=== PATIENT | male | born 1950 | race Caucasian/White ===

== ENCOUNTER → 2016-07-31 | Outpatient (CLI) | payer MEDICARE ==
[2016-07-31 07:58] LABS: Blood Urea Nitrogen 11 mg/dL (9-20); Non-African American GFR(MDRD) >60 (>60 ml/min/1.73 sqM)
--- NOTE | 2016-07-31 09:03 | CT ---
EXAMINATION TYPE: CT soft tissue neck w con DATE OF EXAM: 07/31/2016 8:50 AM COMPARISON: NONE HISTORY: 66-year-old male with right neck Mass TECHNIQUE: Contiguous axial scanning of the neck performed with IV Contrast, patient injected with 10 0 mL of Omnipaque 300. Coronal/sagittal reconstructions performed. CT DLP: 273.1 mGycm Automated exposure control for dose reduction was used. FINDINGS: The visualized intracranial structures show no gross abnormality. Mastoid air cells are clear. Moderate mucosal thickening within the right greater than left maxillary sinuses. Nasopharynx is clear. There is bilateral palatine tonsillar enlargement with calcifications suggesting sequela of prior inf ection. Small 4 mm cystic lesion in the left palatine tonsil is nonspecific. The epiglottis and preve rtebral soft tissues are within normal limits. There is mild abnormal mucosal thickening and enhancement in the region of the right piriform sinus s panning approximately 2.9 cm craniocaudal. Refer to axial images 38 through 44. The glottic and subglottic airway and tracheal column appear within normal limits. There is biapical pleural parenchymal scarring with moderate upper lung emphysema. The thyroid and submandibular glands as well as the parotid glands are satisfactory. There is an abnormal partially cystic, likely necrotic right station 2/3 lymph node measuring 2.0 cm short axis along the anterior margin of the sternocleidomastoid abutting the carotid space. A couple additional prominent lymph nodes are noted on both sides of the upper neck measuring up to 1.2 cm and are not enlarged by CT size criteria. No osseous destructive process seen. Old healed right clavicular shaft fracture deformity. 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
== END | disposition home or self-care (01) ==
LOC: RADCTMAIN 07:18
PROVIDERS: ATTEND Otolaryngology
DX: R22.1 Localized swelling, mass and lump, neck (principal)
CPT/HCPCS: 82565; 84520; 70491; 36415; Q9967

== ENCOUNTER 2017-06-06 12:31 | Inpatient (IN) | payer MEDICARE ==
[2017-06-06] MEDS ORDERED: SODIUM CHLORIDE 0.9% 1,000 ML IV STA ×2 (13:49)
[2017-06-06] MEDS ORDERED: PANTOPRAZOLE 40 MG/10 ML VIAL IVP STA (13:49)
[2017-06-06 14:09] LABS: Basophils % (A) 0 %; Eosinophils # (A) 0.1 k/uL (0-0.7); Eosinophils % (A) 1 %; HCT 40.4 % (39.0-53.0); HGB 13.8 gm/dL (13.0-17.5); Lymphocytes # (A) 0.4 k/uL (1.0-4.8); Lymphocytes % (A) 6 %; MCH 32.6 pg (25.0-35.0); MCHC 34.1 g/dL (31.0-37.0); MCV 95.3 fL (80.0-100.0); Mean Platelet Volume 7.3; Monocytes # (A) 0.4 k/uL (0-1.0); Monocytes % (A) 5 %; Neutrophils # (A) 5.7 k/uL (1.3-7.7); Neutrophils % (A) 86 %; Platelet Count 162 k/uL (150-450); RBC 4.24 m/uL (4.30-5.90); RDW 13.6 % (11.5-15.5); WBC 6.6 k/uL (3.8-10.6)
[2017-06-06 14:30] LABS: ALT 462 U/L (21-72); AST 262 U/L (17-59); Albumin 3.9 g/dL (3.5-5.0); Alkaline Phosphatase 227 U/L (38-126); Amylase 45 U/L (30-110); Anion Gap 10 mmol/L; Blood Urea Nitrogen 13 mg/dL (9-20); Calcium 9.6 mg/dL (8.4-10.2); Carbon Dioxide 29 mmol/L (22-30); Chloride 100 mmol/L (98-107); Glucose 93 mg/dL (74-99); Lipase 78 U/L (23-300); Sodium 139 mmol/L (137-145); Total Bilirubin 5.4 mg/dL (0.2-1.3); Total Protein 6.5 g/dL (6.3-8.2)
--- NOTE | 2017-06-06 15:01 | US ---
EXAMINATION TYPE: US abdomen limited DATE OF EXAM: 06/06/2017 COMPARISON: NONE CLINICAL HISTORY: Pain. 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 Visualized portions near the proximal body are unremar kable. Visualized liver shows no worrisome mass or ductal dilatation. There is stone filled gallbladd er. Gallbladder wall is mildly thickened up to 4 mm. No definitive sonographic Nick's sign. No rachel cholecystic fluid. Common bile duct is moderately dilated at 13 mm. No obstructing stone is identifie d. It is dilated up to pancreatic head without definitive obstructing mass. IMPRESSION: Gallstones with mild gallbladder wall thickening. No pericholecystic fluid collection or abnormal gallbladder wall thickening. Acute cholecystitis cannot be excluded in patient with pain. Co nsider HIDA scan evaluation. There is moderate extrahepatic biliary dilatation without intrahepatic b iliary dilatation. Reason for finding not identified. Consider CT correlation.
[2017-06-06] MEDS ORDERED: RX INFO: IV CONTRAST WAS GIVEN 1 EACH MISC MISCELLANE PRN (15:24)
--- NOTE | 2017-06-06 15:28 | ED ---
Abdominal Pain HPI - General Chief Complaint: Abdominal Pain Stated Complaint: Abd Pain-Sent by Time Seen by Provider: 06/06/17 13:42 Source: patient Mode of arrival: ambulatory Limitations: no limitations - History of Present Illness Initial Comments: This 67-year-old white male presents with a complaint of some midepigastric and bilateral upper abdominal pain which is been present for the last 2 days. He states that it initially occurred 2 days ago after sipping some coffee. He states that the pain was excruciating in nature and radiated posteriorly. He denies any nausea vomiting or diarrhea. He's felt feverish at times but has not had any known temperature. He states that he has not 8 much because every time he tries to eat it is much worse. He denies any previous similar incidents. He denies any history of abdominal surgeries. No other complaints or modifying factors. - Related Data Home Medications Medication Instructions Recorded Confirmed Albuterol Inhaler [Ventolin Hfa 1 puff INHALATION RT-BID 07/30/16 06/06/17 Inhaler] Ipratropium [place] [Atrovent Hfa] 1 puff INHALATION RT-BID 07/30/16 06/06/17 Allergies Allergy/AdvReac Type Severity Reaction Status Date / Time No Known Allergies Allergy Verified 06/06/17 13:39 Review of Systems ROS Statement: Those systems with pertinent positive or pertinent negative responses have been documented in the HPI. ROS Other: All systems not noted in ROS Statement are negative. Past Medical History Past Medical History: COPD Additional Past Medical History / Comment(s): chronic sinus infecton, ear infection on right side, lump on neck on right side. History of Any Multi-Drug Resistant Organisms: None Reported Past Surgical History: No Surgical Hx Reported Additional Past Surgical History / Comment(s): sinus surgery, repair of leg fracture Past Anesthesia/Blood Transfusion Reactions: No Reported Reaction Past Psychological History: No Psychological Hx Reported Smoking Status: Current every day smoker Past Alcohol Use History: Daily, Rare Past Drug Use History: Marijuana - Past Family History Mother Family Medical History: Myocardial Infarction ([place]) General Exam - General Exam Comments Initial Comments: GENERAL: The patient is well nourished and well hydrated. VITAL SIGNS: Heart rate, blood pressure, respiratory rate reviewed as recorded in nurse's notes. EYES: Pupils are round and reactive. Extraocular movements are intact. No conjunctival / lid redness or swelling. ENT: No external evidence of injury, swelling, or ecchymosis. Airway is patent. Throat is clear. NECK: Nontender. No swelling or evidence of injury. No subcutaneous emphysema. Trachea is midline. No thyroid mass. HEART: Regular rate and rhythm. Good peripheral pulses. LUNGS/CHEST: Breath sounds clear and equal bilaterally. No rales, rhonchi, or wheezes. No ecchymosis, subcutaneous emphysema, or tenderness. ABDOMEN: There is tenderness present primarily in the midepigastric region but also into the bilateral upper abdomen. No palpable masses or organomegaly. No peritoneal signs. No abdominal wall swelling or ecchymosis. EXTREMITIES: No extremity tenderness. Normal muscle tone and function. No thoracolumbar tenderness. NEUROLOGIC: Sensation is grossly intact. Cranial nerve exam reveals face is symmetrical, tongue is midline, speech is clear. SKIN: No abrasions or ecchymosis is noted. No induration or masses noted. PSYCHIATRIC: Alert and oriented. Appropriate behavior and judgment. Limitations: no limitations Course Vital Signs 06/06/17 12:41 Temperature 98.1 F Pulse Rate 78 Respiratory 18 Rate Blood Pressure 114/71 O2 Sat by Pulse 98 Oximetry Medical Decision Making - Medical Decision Making The patient was seen and examined. All diagnostics were reviewed. An IV is established. He states that he is not in any pain currently so pain medications are withheld. He had a laboratory analysis completed which is show elevation of his bilirubin and transaminases. The abdominal ultrasound does show evidence of gallstones as well as some mild gallbladder wall thickening. They suggest completing a computed tomography scan of the abdomen and pelvis and this is also ordered and is pending. It is felt that he does have acute cholecystitis and would benefit from admission to the hospital and further surgical consultation. Case is discussed with internal medicine and they're agreeable as well. - Lab Data Result diagrams: 06/06/17 13:51 06/06/17 13:51 Lab Results 06/06/17 06/06/17 Range/Units 13:51 13:51 WBC 6.6 (3.8-10.6) k/uL RBC 4.24 L (4.30-5.90) m/uL Hgb 13.8 (13.0-17.5) gm/dL Hct 40.4 (39.0-53.0) % MCV 95.3 (80.0-100.0) fL MCH 32.6 (25.0-35.0) pg MCHC 34.1 (31.0-37.0) g/dL RDW 13.6 (11.5-15.5) % Plt Count 162 (150-450) k/uL Neutrophils % 86 % Lymphocytes % 6 % Monocytes % 5 % Eosinophils % 1 % Basophils % 0 % Neutrophils # 5.7 (1.3-7.7) k/uL Lymphocytes # 0.4 L (1.0-4.8) k/uL Monocytes # 0.4 (0-1.0) k/uL Eosinophils # 0.1 (0-0.7) k/uL Basophils # 0.0 (0-0.2) k/uL Sodium 139 (137-145) mmol/L Potassium 4.0 (3.5-5.1) mmol/L Chloride 100 (98-107) mmol/L Carbon Dioxide 29 (22-30) mmol/L Anion Gap 10 mmol/L BUN 13 (9-20) mg/dL Creatinine 0.80 (0.66-1.25) mg/dL Est GFR (CKD-EPI)AfAm >90 (>60 ml/min/1.73 sqM) Est GFR (CKD-EPI)NonAf >90 (>60 ml/min/1.73 sqM) Glucose 93 (74-99) mg/dL Calcium 9.6 (8.4-10.2) mg/dL Total Bilirubin 5.4 H (0.2-1.3) mg/dL AST 262 H (17-59) U/L ALT 462 H (21-72) U/L Alkaline Phosphatase 227 H (38-126) U/L Total Protein 6.5 (6.3-8.2) g/dL Albumin 3.9 (3.5-5.0) g/dL Amylase 45 (30-110) U/L Lipase 78 (23-300) U/L Disposition Clinical Impression: Cholecystitis, Gallstone, Abdominal pain, Hepatic failure, Jaundice Disposition: ADMITTED IP TO THIS [facility] Condition: Fair Time of Disposition: 16:01 Decision Date: 06/06/17 Decision Time: 16:01
[2017-06-06] MEDS ORDERED: NICOTINE 21MG/24HR PATCH TRANSDERM STA (16:01)
[2017-06-06] MEDS ORDERED: HYDROcodone/APAP 5-325MG 1 EACH TAB PO PRN (16:02)
[2017-06-06] MEDS ORDERED: ONDANSETRON 4 MG/2 ML VIAL IVP PRN (16:02)
[2017-06-06] MEDS ORDERED: NALOXONE 0.4 MG/ML 1 ML VIAL IV PRN (16:02)
[2017-06-06] MEDS ORDERED: MORPHINE SULFATE/PF 10MG/10ML VL IV PRN (16:02)
[2017-06-06] MEDS ORDERED: DOCUSATE 100 MG CAP PO PRN (16:02)
--- NOTE | 2017-06-06 16:10 | CT ---
EXAMINATION TYPE: CT abdomen pelvis w con DATE OF EXAM: 06/06/2017 COMPARISON: Correlation ultrasound today HISTORY: 67-year-old male epigastric and abdominal pain. TECHNIQUE: Contiguous axial scanning of the abdomen and pelvis following administration of 100 ml Omn ipaque 300 IV contrast. Delayed images through the kidneys and coronal/sagittal reconstructions perf ormed. CT DLP: 699 mGycm Automated exposure control for dose reduction was used. FINDINGS: Heart is normal size without pericardial effusion. Ectasia of the lower descending thoracic aorta at 2.5 cm. Strandy atelectasis at the visualized lung bases without pleural effusion. Moderate to severe atherosclerotic changes in the abdominal aorta without aneurysm. No focal liver lesion. However, there is moderate intrahepatic ductal dilatation and dilatation of th e bile measuring up to 1.5 cm, coronal image 19. There is cholelithiasis with numerous gallstones. There appears to be a 1.2 cm calculus at the gallbl adder neck and probable additional calculus in the cystic duct, coronal image 23. Additionally, suspect a 4 mm distal bile duct calculus, coronal image 23 as well. Portal venous system is patent. Adrenal glands, kidneys, spleen, and pancreas appear within normal limits. No dilated small bowel, free fluid, or free air. Prominent fluid filled small bowel loops in the mid and lower abdomen and pelvis are nonspecific. Normal appendix. Scattered moderate stool throughout the colon. No pericolonic inflammatory change. Bladder is urine distended. Prostate gland measures 4.4 cm wide. No abnormal fluid collection in the pelvis or pelvic lymphadenopathy. Bones: Mild degenerative changes at the hips and SI joints. There are bilateral L5 pars defects with grade 1 anterolisthesis at L5-S1. Trace grade 1 retrolisthesis at L3-L4 and L4-L5. No osseous destruc tive process. IMPRESSION: 1. CHOLELITHIASIS. THERE IS A 1.2 CM CALCULUS AT THE GALLBLADDER NECK AND ADDITIONAL CALCULUS APPEARS TO BE IN THE CYSTIC DUCT. CONSIDER MONITORING THE PATIENT FOR EVENTUAL ACUTE CHOLECYSTITIS. NO ABNOR MAL GALLBLADDER DISTENTION OR SURROUNDING INFLAMMATION AT THIS TIME. 2. MODERATE BILIARY DUCTAL DILATATION WITH SUGGESTION OF A 4 MM DISTAL BILE DUCT STONE. FINDINGS SUGG EST CHOLEDOCHOLITHIASIS. CONFIRM BILIARY OBSTRUCTION WITH ALKALINE PHOSPHATASE AND BILIRUBIN LEVELS. 3. BILATERAL L5 PARS DEFECTS WITH GRADE 1 ANTEROLISTHESIS.
[2017-06-06] MEDS ORDERED: IPRATROPIUM-ALBUTEROL 3 ML NEB INHALATION SCH (20:00)
[2017-06-06] MEDS ORDERED: IPRATROPIUM BROMIDE INHALATION SCH (20:00)
[2017-06-06] MEDS ORDERED: TEMAZEPAM 15 MG CAP PO PRN (20:14)
[2017-06-06] MEDS ORDERED: ALPRAZolam 0.25 MG TAB PO PRN (20:14)
[2017-06-06] MEDS ORDERED: IPRATROPIUM-ALBUTEROL 3 ML NEB INHALATION PRN (20:14)
--- NOTE | 2017-06-06 20:32 | P.GSCN ---
History of Present Illness Consult date: 06/06/17 History of present illness: This is a 67-year-old male who began experiencing abdominal pain in his right upper quadrant midepigastric area 4 days ago. He states this progressively been getting worse. He is noted dark urine in the last several days. He had pain like this several years ago however better on its own. He has no past abdominal surgical history. He's been afebrile he denies nausea vomiting. He has no other complaints at this time Past Medical History Past Medical History: Cancer, COPD Additional Past Medical History / Comment(s): chronic sinus infecton, ear infection on right side, lump ([place]) on neck on right side. Tongue CA- radiation and chemo completed 10/25 History of Any Multi-Drug Resistant Organisms: None Reported Past Surgical History: No Surgical Hx Reported Additional Past Surgical History / Comment(s): sinus surgery, repair of leg fracture Past Anesthesia/Blood Transfusion Reactions: No Reported Reaction Past Psychological History: No Psychological Hx Reported Smoking Status: Current every day smoker Past Alcohol Use History: None Reported Past Drug Use History: None Reported - Past Family History Mother Family Medical History: Myocardial Infarction ([place]) Medications and Allergies Home Medications Medication Instructions Recorded Confirmed Type Albuterol Inhaler [Ventolin Hfa 1 puff INHALATION RT-BID 07/30/16 06/06/17 History Inhaler] Ipratropium [place] [Atrovent Hfa] 1 puff INHALATION RT-BID 07/30/16 06/06/17 History Allergies Allergy/AdvReac Type Severity Reaction Status Date / Time No Known Allergies Allergy Verified 06/06/17 13:39 Surgical - Exam Osteopathic Statement: *. No significant issues noted on an osteopathic structural exam other than those noted in the History and Physical/Consult. Vital Signs Temp Pulse Resp BP Pulse Ox 98.1 F 78 18 114/71 98 06/06/17 12:41 06/06/17 12:41 06/06/17 12:41 06/06/17 12:41 06/06/17 12:41 - General well developed, well nourished, no distress - Eyes PERRL - ENT normal pinna - Neck no masses - Respiratory normal expansion, normal respiratory effort - Cardiovascular Rhythm: regular - Abdomen S/ND/mild TTP RUQ, No R/R/G - Neurologic normal coordination, normal sensation Results - Labs 06/06/17 13:51 06/06/17 13:51 Abnormal Lab Results - Last 24 Hours (Table) 06/06/17 06/06/17 Range/Units 13:51 13:51 RBC 4.24 L (4.30-5.90) m/uL Lymphocytes # 0.4 L (1.0-4.8) k/uL Total Bilirubin 5.4 H (0.2-1.3) mg/dL AST 262 H (17-59) U/L ALT 462 H (21-72) U/L Alkaline Phosphatase 227 H (38-126) U/L Diabetes panel 06/06/17 Range/Units 13:51 Sodium 139 (137-145) mmol/L Potassium 4.0 (3.5-5.1) mmol/L Chloride 100 (98-107) mmol/L Carbon Dioxide 29 (22-30) mmol/L BUN 13 (9-20) mg/dL Creatinine 0.80 (0.66-1.25) mg/dL Glucose 93 (74-99) mg/dL Calcium 9.6 (8.4-10.2) mg/dL AST 262 H (17-59) U/L ALT 462 H (21-72) U/L Alkaline Phosphatase 227 H (38-126) U/L Total Protein 6.5 (6.3-8.2) g/dL Albumin 3.9 (3.5-5.0) g/dL Calcium panel 06/06/17 Range/Units 13:51 Calcium 9.6 (8.4-10.2) mg/dL Albumin 3.9 (3.5-5.0) g/dL Pituitary panel 06/06/17 Range/Units 13:51 Sodium 139 (137-145) mmol/L Potassium 4.0 (3.5-5.1) mmol/L Chloride 100 (98-107) mmol/L Carbon Dioxide 29 (22-30) mmol/L BUN 13 (9-20) mg/dL Creatinine 0.80 (0.66-1.25) mg/dL Glucose 93 (74-99) mg/dL Calcium 9.6 (8.4-10.2) mg/dL Adrenal panel 06/06/17 Range/Units 13:51 Sodium 139 (137-145) mmol/L Potassium 4.0 (3.5-5.1) mmol/L Chloride 100 (98-107) mmol/L Carbon Dioxide 29 (22-30) mmol/L BUN 13 (9-20) mg/dL Creatinine 0.80 (0.66-1.25) mg/dL Glucose 93 (74-99) mg/dL Calcium 9.6 (8.4-10.2) mg/dL Total Bilirubin 5.4 H (0.2-1.3) mg/dL AST 262 H (17-59) U/L ALT 462 H (21-72) U/L Alkaline Phosphatase 227 H (38-126) U/L Total Protein 6.5 (6.3-8.2) g/dL Albumin 3.9 (3.5-5.0) g/dL - Imaging CT scan - abdomen: report reviewed, image reviewed CT scan - pelvis: report reviewed, image reviewed US - abdomen: report reviewed Assessment and Plan Assessment: Choledocholithiasis Plan: Patient has elevated bili with suspected stone in CBD on CT and dilated CBD on US. Continue NPO, IVF, patient is on unasyn, GI consulted for possible ERCP. Will plan for lap cholecystectomy prior to discharge once obstructive jaundice resolves.
--- NOTE | 2017-06-06 20:36 | HP ---
HISTORY AND PHYSICAL CHIEF COMPLAINT: Abdominal pain. HISTORY OF PRESENT ILLNESS: This 67-year-old gentleman with a past history of COPD, history of chronic sinus infection, history of nicotine dependence being followed by Dr. Cross in the outpatient setting was complaining of abdominal pain. Initially patient apparently had pain after drinking coffee but subsequently, the patient had severe upper abdominal pain which is cramping in character, which is radiating to the back and also to the right shoulder and the patient came to [facility]. Patient underwent abdominal and pelvis CAT scan of the abdomen which showed cholelithiasis and as well as moderate biliary dilatation. The abdominal ultrasound showed gallstones with gallbladder thickening and the patient admitted to the hospital for further evaluation and treatment. There is no history of fever, rigors or chills. No history of headache, loss of consciousness or seizures. PAST MEDICAL HISTORY: COPD, sinus infection, history of nicotine dependence. Marijuana. MEDICATIONS: Prior to admission include albuterol 1 puff b.i.d. and Ventolin b.i.d. ALLERGIES: None. FAMILY HISTORY: History of myocardial infarction in the family. SOCIAL HISTORY: History of smoking. No history of alcohol intake. REVIEW OF SYSTEMS: ENT: No diminished vision or hearing. Cardiovascular: No angina or palpitations. Respiratory: As mentioned earlier. GI no nausea or vomiting. no dysuria or hematuria. Nervous system: No numbness, weakness. Allergy/Immunology: No asthma or hayfever. Musculoskeletal as mentioned earlier. Dermatology: Negative. Hematology/Oncology: No history of anemia. Endocrine: No history of diabetes or hypothyroidism. Constitutional: As mentioned earlier. Rheumatology: Negative. Psychiatric: As mentioned earlier. PHYSICAL EXAM: Patient is alert, oriented x3. Pulse is 71, blood pressure 108/67, respirations 16, temp 98 degrees, pulse ox 98% on room air. HEENT: Conjunctivae normal. Neck: No jugular venous distention. Cardiovascular: S1, S2 muffled. Respiration: Breath sounds diminished in the bases. A few scattered rhonchi and expiratory wheezing and crackles. ABDOMEN: Soft. Mild diffuse discomfort present in the epigastrium and right upper quadrant. No guarding. No rigidity. No mass palpable. Legs nontender. No edema. Nervous system: Higher functions as mentioned earlier. Moves all four extremities. No focal deficits. Lymphatics: No lymph nodes palpable in the neck, axillae or groin. Skin: No ulcer, rash or bleeding. LAB STUDIES: WBC 6.2, hemoglobin 4.24, total bilirubin 5.4, AST is 262, ALT is 462. ASSESSMENT: 1. Acute abdominal pain secondary to cholelithiasis and cholecystitis. 2. Elevated AST, ALT, bilirubin, rule out CBD stones. 3. History of chronic obstructive pulmonary disease. 4. History of nicotine dependence. 5. History of THC. RECOMMENDATIONS AND DISCUSSION: This 67-year-old gentleman who presented with multiple complex medical issues, we will monitor the patient closely, continue the current medications, management and symptomatic treatment. Surgical evaluation. Otherwise repeat labs. DVT prophylaxis. Possible cholecystectomy. Gastroenterology evaluation, possibly ERCP. Guarded prognosis because of multiple complex medical issues. Further recommendations to follow. A copy of dictation being forwarded to Dr. Cross who is the primary physician. MMODL / PORFIRION: [id number] /
[2017-06-06] MEDS: AMPICILLIN-SULBACTAM 1.5 GM in SODIUM CHLORIDE 0.9% 50 ML IVPB SCH (22:17)
[2017-06-06] MEDS: NICOTINE 14MG/24HR PATCH TRANSDERM SCH (22:19)
[2017-06-07] MEDS: AMPICILLIN-SULBACTAM 1.5 GM in SODIUM CHLORIDE 0.9% 50 ML IVPB SCH ×3 (05:23→17:35)
[2017-06-07] MEDS: IPRATROPIUM-ALBUTEROL 3 ML NEB INHALATION SCH ×3 (07:31→20:16)
[2017-06-07 07:48] LABS: Basophils % (A) 1 %; Eosinophils # (A) 0.1 k/uL (0-0.7); Eosinophils % (A) 2 %; HCT 38.1 % (39.0-53.0); Lymphocytes # (A) 0.4 k/uL (1.0-4.8); Lymphocytes % (A) 9 %; MCH 32.8 pg (25.0-35.0); MCHC 34.2 g/dL (31.0-37.0); MCV 95.9 fL (80.0-100.0); Mean Platelet Volume 7.8; Monocytes # (A) 0.3 k/uL (0-1.0); Monocytes % (A) 7 %; Neutrophils # (A) 3.7 k/uL (1.3-7.7); Neutrophils % (A) 81 %; Platelet Count 153 k/uL (150-450); RBC 3.97 m/uL (4.30-5.90); RDW 13.7 % (11.5-15.5); WBC 4.6 k/uL (3.8-10.6)
[2017-06-07 07:56] LABS: ALT 332 U/L (21-72); AST 162 U/L (17-59); Albumin 3.4 g/dL (3.5-5.0); Alkaline Phosphatase 230 U/L (38-126); Anion Gap 14 mmol/L; Blood Urea Nitrogen 15 mg/dL (9-20); Calcium 9.1 mg/dL (8.4-10.2); Carbon Dioxide 22 mmol/L (22-30); Chloride 106 mmol/L (98-107); Glucose 58 mg/dL (74-99); Potassium 4.1 mmol/L (3.5-5.1); Sodium 142 mmol/L (137-145); Total Protein 5.8 g/dL (6.3-8.2)
[2017-06-07] MEDS: NICOTINE 14MG/24HR PATCH TRANSDERM SCH (08:42)
[2017-06-07] MEDS: ENOXAPARIN 40 MG/0.4 ML SYRINGE SQ SCH (08:57)
[2017-06-07] MEDS: PANTOPRAZOLE 40 MG/10 ML VIAL IV SCH (09:00)
--- NOTE | 2017-06-07 11:18 | P.PN ---
Subjective Progress Note Date: 06/07/17 Patient well overnight no complaints. His pain is about the same. No fevers Objective - Vital Signs Vital signs: Vital Signs Temp 98.6 F 06/07/17 08:38 Pulse 71 06/07/17 08:38 Resp 16 06/07/17 08:38 BP 103/57 06/07/17 08:38 Pulse Ox 95 06/07/17 08:38 Intake & Output 06/06/17 06/07/17 06/07/17 18:59 06:59 18:59 Intake Total 1200 Balance 1200 Weight 56.699 kg Intake: Intake, IV Titration 1200 Amount Ampicillin-Sulbactam 1.5 50 gm In Sodium Chloride 0.9 % 50 ml @ 100 mls/hr IVPB Q6HR DANN Rx#:[id number] Sodium Chloride 0.9% 1, 1150 000 ml @ 100 mls/hr IV . Q10H STA Rx#:[id number] Other: Voiding Method Toilet Toilet # Voids 1 1 - Constitutional General appearance: Present: cooperative - Respiratory Details: Nonlabored - Cardiovascular Rhythm: regular - Gastrointestinal Gastrointestinal Comment(s): Soft nondistended mild tenderness palpation - Psychiatric Psychiatric: Present: A&O x's 3 - Labs CBC & Chem 7: 06/07/17 06:10 06/07/17 06:10 Labs: Abnormal Lab Results - Last 24 Hours (Table) 06/06/17 06/06/17 06/07/17 Range/Units 13:51 13:51 06:10 RBC 4.24 L 3.97 L (4.30-5.90) m/uL Hct 38.1 L (39.0-53.0) % Lymphocytes # 0.4 L 0.4 L (1.0-4.8) k/uL Glucose (74-99) mg/dL Total Bilirubin 5.4 H (0.2-1.3) mg/dL AST 262 H (17-59) U/L ALT 462 H (21-72) U/L Alkaline Phosphatase 227 H (38-126) U/L Total Protein (6.3-8.2) g/dL Albumin (3.5-5.0) g/dL 06/07/17 Range/Units 06:10 RBC (4.30-5.90) m/uL Hct (39.0-53.0) % Lymphocytes # (1.0-4.8) k/uL Glucose 58 L (74-99) mg/dL Total Bilirubin 7.0 H (0.2-1.3) mg/dL AST 162 H (17-59) U/L ALT 332 H (21-72) U/L Alkaline Phosphatase 230 H (38-126) U/L Total Protein 5.8 L (6.3-8.2) g/dL Albumin 3.4 L (3.5-5.0) g/dL Assessment and Plan Assessment: Choledocholithiasis Plan: Continue nothing by mouth follow GI recommendations for possible ERCP. Plan will be for cholecystectomy once patient is cleared from GI standpoint.
[2017-06-07] MEDS ORDERED: INDOMETHACIN 50MG SUPPOSITORY RECTAL ONE (12:30)
[2017-06-07] MEDS ORDERED: PROPOFOL 10 MG/ML 20 ML VIAL IV ONE (13:54)
[2017-06-07] MEDS ORDERED: GLUCAGON 1 MG/ML VIAL ONE (13:54)
--- NOTE | 2017-06-07 14:34 | CONS ---
CONSULTATION DATE OF SERVICE: 06/07/2017 REQUESTING PHYSICIAN: Dr. Kwon and Dr. Cross. REASON FOR THE CONSULTATION: Abdominal pain and jaundice. HISTORY OF PRESENT ILLNESS: The patient is a 67-year-old pleasant white male who was admitted to the hospital with severe epigastric right upper quadrant abdominal pain for the last 4 days' duration. The patient initially had seen symptoms about 2 weeks ago that lasted for a couple of days and resolved. On Saturday, he started having severe pain and he noticed his urine turning yellow. He came into the emergency room yesterday and he had an ultrasound of the abdomen that showed evidence of gallstones and dilated common bile duct. He was also noted to have jaundice with a bili of 5, which increased to 7 today and elevated his serum transaminases and because of clinical suspicion for CBD stone, we are consulted for an ERCP. The patient denies any fever, chills, night sweats. This morning he is feeling better. Abdominal pain has resolved. PAST MEDICAL HISTORY: COPD, history of tongue cancer for which he underwent radiation and chemo. which was completed in October of 2016. MEDICATIONS: Albuterol, Atrovent. ALLERGIES: None. SOCIAL HISTORY: Remote history of smoking. No alcohol use. FAMILY HISTORY: Unremarkable. Mother has [place]. Father has hypertension. REVIEW OF SYSTEMS: CARDIOPULMONARY: No chest pain, shortness of breath. GENITOURINARY: No dysuria, hematuria. MUSCULOSKELETAL: Unremarkable. SKIN: Unremarkable. ENDOCRINE: Unremarkable. PSYCHIATRIC: Unremarkable. NEUROLOGY: Unremarkable. INTEGUMENT: Unremarkable. CONSTITUTIONAL: no recent weight loss. No fever, chills, night sweats. PHYSICAL EXAMINATION: Blood pressure 103/57, pulse rate 71, and afebrile. HEENT examination unremarkable. Conjunctivae are pink, sclerae deeply icteric. Oral cavity no lesions. NECK: No JVD or lymph node enlargement. CHEST: Clear to auscultation. HEART: Regular rate and rhythm. ABDOMEN: Soft. Bowel sounds are positive. No organomegaly. EXTREMITIES: No pedal edema. SKIN: No rashes. NEURO: Alert and oriented x3. No focal deficits. LABS: Done at the time of admission to the hospital, WBC 6.6, hemoglobin 7.8, platelets normal. Amylase and lipase are normal. T bili was 5.4, AST is 262, ALT 462, alk phos 227 today. T bili is up to 7, AST is 162, ALT is 332, and alk phose 230. Ultrasound of the abdomen showed evidence of gallstones and biliary ductal dilation with CBD measuring 1 cm. IMPRESSION: This a patient who presents with epigastric and right upper quadrant abdominal pain for the last 4 days duration, noted to have elevated LFTs and jaundice with a bili of 7 and ultrasound showing gallstones and dilated CBD. Clinical picture consistent with possible choledocholithiasis. RECOMMENDATION: Will proceed with ERCP today. I discussed with the patient risks, benefits and complications including pancreatitis, bleeding, perforation, and he is agreeable to it. Thank you for this consultation. MMODL / IJN: [id number] /
[2017-06-07] MEDS ORDERED: IOPAMIDOL-370 50ML BTL ONE (14:50)
[2017-06-07] MEDS ORDERED: IOPAMIDOL-370 50ML BTL MISCELLANE ONE (14:50)
--- NOTE | 2017-06-07 14:54 | P.PCN ---
Date of Procedure: 06/07/17 Procedure(s) Performed: Brief history: Patient is a 67 year-old pleasant white male, scheduled for an ERCP as part of evaluation of abdominal pain and elevated serum transaminases/ jaundice for the last 3 days' duration. He was noted to have a bilirubin of 7 with elevated serum transaminases in the range of 200s and 300s an ultrasound of the abdomen showing multiple gallstones and biliary ductal dilation. Because of the clinical suspicion for CBD stones he scheduled for an ERCP today. Procedure performed: ERCP with biliary sphincterotomy, balloon stone extraction , CBD stent placement Preoperative diagnoses: Jaundice/elevated LFTs/epigastric and right upper quadrant abdominal pain of 3 days' duration IV sedation per anesthesia: Procedure: After informed consent was obtained from the patient and after the risks benefits and complications including bleeding perforation and pancreatitis explained in detail the patient was brought into the endoscopy unit. The patient was placed in prone position and IV conscious sedation was administered by anesthesia under continuous monitoring. The Olympus side-viewing duodenoscope was then inserted into the mouth and esophagus intubated without any difficulty. The scope was gradually advanced into the stomach and duodenum. The major papilla was identified without any difficulty. There was a periampullary diverticulum noted. Initial cannulation resulted in presentation the pancreatic duct that appeared normal. Subsequent cannulation resulted in the common bile duct and upon injection of the dye the common bile duct appeared slightly dilated measuring about 1 cm in diameter with a 1 cm filling defect in the distal common bile duct. There was mild intrahepatic biliary ductal dilation seen. At this time the catheter was removed and exchanged over a guidewire and a biliary sphincterotome was passed over the guidewire into the proximal CBD. It was gently withdrawn and biliary sphincterotomy was performed at 12 o'clock position and was extended to 1 cm. Following this an 8 mm balloon was passed over the guidewire into the proximal CBD and was gently inflated and withdrawn and after repeating this man over several times particles of stone was seen exiting the ampulla. After this I performed an occlusion cholangiogram and at this point there was a faint filling defect noted in the distal common bile duct but the balloon was withdrawn several times.fully inflated and no other studies were seen exiting the ampulla. However there was some persistence of vague obesity in the distal common bile duct and was not sure whether this was related to the periampullary diverticulum. I decided to place a 5 cm 7-Turkmen with the stent into the proximal CBD to ensure adequate biliary drainage. There was good drainage of the bile the patient tolerated the procedure well. Impression: 1. Normal pancreatic duct 2. Dilated common bile duct with a 1 cm filling defect in the distal common bile duct status post biliary sphincterotomy, balloon stone extraction and CBD stent placement as described above. There was persistence of opaque small hypodensity at the distal common bile duct which persisted despite the fully inflated balloon was was sweeped across the ampulla. Because of a clinical suspicion for him small stone a biliary stent was placed. Recommendations: The findings of this examination were discussed with the patient as well as a family. At this time will continue with antivirals and repeat labs in the morning. If the labs continue to improve the patient can be proceed with laparoscopic cholecystectomy. We'll plan on repeat ERCP with CBD stent removal in 4-6 weeks.
[2017-06-07] MEDS ORDERED: IV FLUID CONTINUATION 900 ML IV ONE (14:57)
--- NOTE | 2017-06-07 15:17 | FL ---
Fluoroscopy History: ERCP DR JIMÉNEZ 1MIN 24 SECS FL TIME ACESSED BOTH PANCREATIC AND BILIARY DUCT 2 IMAGES
[2017-06-07] MEDS ORDERED: MORPHINE SULF 5MG/10ML VL IV PRN (15:31)
--- NOTE | 2017-06-07 19:10 | PN ---
PROGRESS NOTE DATE OF SERVICE: 06/07/2017 This 67-year-old gentleman who was admitted with features of cholelithiasis and cholecystitis had elevated LFTs. The patient underwent ERCP by Dr. Dallas today which showed normal pancreatic duct and dilated common bile duct with 1 cm filling defect was noted. Bilirubin extraction and CBD stent placement was done. A persistent small opaque density in the distal CBD was suspected. No chest pain. No palpitations. No fever. PHYSICAL EXAM: Alert and oriented x3. Pulse 54, blood pressure is 113/52, respirations 16, temperature 98.2 pulse ox 100% on room air. HEENT: Conjunctivae normal. Oral mucosa moist. NECK: No jugular venous distention. No carotid bruits. No lymph node enlargement. CARDIOVASCULAR: S1, S2 muffled. RESPIRATORY: Breath sounds diminished in the bases. A few scattered rhonchi. ABDOMEN: Soft. Mild diffuse discomfort in the epigastrium and right upper quadrant. Bowel sounds present. No mass palpable. LEGS: No edema. NERVOUS SYSTEM: No focal deficits. LABS: WBC 4.6, hemoglobin is 13. Glucose 58. albumin is 7 and AST is 162, ALT 332. ASSESSMENT: 1. Acute abdomen, possible cholelithiasis and cholecystitis. 2. Possible common bile duct stone with AST, ALT, elevated bilirubin, status post endoscopic retrograde cholangiopancreatography, common bile duct stone extraction as well as biliary stent placement. 3. History of chronic obstructive pulmonary disease. 4. History of nicotine dependence. 5. History of THC. 6. Hypoglycemia. RECOMMENDATIONS AND DISCUSSION: Recommend to continue current medical management, symptomatic treatment. Otherwise, recommend closely follow with Surgery as well as Gastroenterology. Repeat labs. Guarded prognosis because of multiple complex medical issues and further recommendations to follow. MMODL / IJN: [id number] /
[2017-06-07] MEDS: D5W WITH KCL 20 MEQ/L 1,000 ML IV SCH (20:18)
[2017-06-08] MEDS: AMPICILLIN-SULBACTAM 1.5 GM in SODIUM CHLORIDE 0.9% 50 ML IVPB SCH ×4 (00:31→18:04)
[2017-06-08 07:18] LABS: Basophils % (A) 0 %; Eosinophils # (A) 0.1 k/uL (0-0.7); Eosinophils % (A) 3 %; HCT 39.3 % (39.0-53.0); HGB 12.9 gm/dL (13.0-17.5); Lymphocytes # (A) 0.5 k/uL (1.0-4.8); Lymphocytes % (A) 11 %; MCH 31.5 pg (25.0-35.0); MCHC 32.8 g/dL (31.0-37.0); MCV 96.2 fL (80.0-100.0); Mean Platelet Volume 7.5; Monocytes # (A) 0.3 k/uL (0-1.0); Monocytes % (A) 7 %; Neutrophils # (A) 3.4 k/uL (1.3-7.7); Neutrophils % (A) 79 %; Platelet Count 175 k/uL (150-450); RBC 4.08 m/uL (4.30-5.90); RDW 13.7 % (11.5-15.5); WBC 4.4 k/uL (3.8-10.6)
[2017-06-08 07:31] LABS: ALT 260 U/L (21-72); AST 86 U/L (17-59); Albumin 3.3 g/dL (3.5-5.0); Alkaline Phosphatase 203 U/L (38-126); Anion Gap 9 mmol/L; Blood Urea Nitrogen 11 mg/dL (9-20); Carbon Dioxide 27 mmol/L (22-30); Chloride 108 mmol/L (98-107); Glucose 103 mg/dL (74-99); Potassium 4.1 mmol/L (3.5-5.1); Sodium 144 mmol/L (137-145); Total Bilirubin 2.2 mg/dL (0.2-1.3); Total Protein 5.7 g/dL (6.3-8.2)
--- NOTE | 2017-06-08 08:06 | P.PN ---
Subjective Progress Note Date: 06/08/17 Patient seen and examined at bedside. He states he is doing much better and his abdominal pain has resolved. He states his urine has lightened in color. He states he is hungry. He has no additional complaints at this time. Objective - Vital Signs Vital signs: Vital Signs Temp 98 F 06/08/17 07:00 Pulse 58 L 06/08/17 07:00 Resp 16 06/08/17 07:00 BP 102/65 06/08/17 07:00 Pulse Ox 96 06/08/17 07:00 Intake & Output 06/07/17 06/08/17 06/08/17 18:59 06:59 18:59 Intake Total 500 Balance 500 Weight 56.699 kg Intake: IV 500 Other: Voiding Method Toilet Toilet # Voids 1 3 - Constitutional General appearance: Present: cooperative, no acute distress - EENT ENT: Present: hearing grossly normal - Respiratory Details: No difficulty with respiration - Gastrointestinal Gastrointestinal Comment(s): Soft, nontender, nondistended, no rebound, no guarding - Psychiatric Psychiatric: Present: A&O x's 3 - Labs CBC & Chem 7: 06/08/17 06:15 06/08/17 06:15 Labs: Abnormal Lab Results - Last 24 Hours (Table) 06/08/17 06/08/17 Range/Units 06:15 06:15 RBC 4.08 L (4.30-5.90) m/uL Hgb 12.9 L (13.0-17.5) gm/dL Lymphocytes # 0.5 L (1.0-4.8) k/uL Chloride 108 H (98-107) mmol/L Glucose 103 H (74-99) mg/dL Total Bilirubin 2.2 H (0.2-1.3) mg/dL AST 86 H (17-59) U/L ALT 260 H (21-72) U/L Alkaline Phosphatase 203 H (38-126) U/L Total Protein 5.7 L (6.3-8.2) g/dL Albumin 3.3 L (3.5-5.0) g/dL Assessment and Plan Plan: 67-year-old male with cholelithiasis and history of choledocholithiasis status post ERCP with stent placement - Bilirubin levels have decreased - Pain is improved, we'll advance patient's diet - Will continue to follow LFTs and plan for cholecystectomy on Saturday, June 10
[2017-06-08] MEDS: NICOTINE 21MG/24HR PATCH TRANSDERM SCH (08:37)
[2017-06-08] MEDS: SODIUM CHLORIDE 0.9% 1,000 ML IV SCH ×2 (08:38→20:29)
[2017-06-08] MEDS: PANTOPRAZOLE 40 MG/10 ML VIAL IV SCH (08:39)
[2017-06-08] MEDS: ENOXAPARIN 40 MG/0.4 ML SYRINGE SQ SCH (08:42)
[2017-06-08] MEDS: IPRATROPIUM-ALBUTEROL 3 ML NEB INHALATION SCH ×3 (09:03→20:26)
[2017-06-08] MEDS: D5W WITH KCL 20 MEQ/L 1,000 ML IV SCH (09:45)
--- NOTE | 2017-06-08 14:08 | PN ---
PROGRESS NOTE DATE OF SERVICE: 06/08/2017. INTERVAL HISTORY: This 67-year-old gentleman admitted with cholelithiasis and cholecystitis also had CBD stones. The patient underwent ERCP and stone extraction, stent placement by Dr. Dallas. The patient being closely monitored. Surgery is planning laparoscopic cholecystectomy. No chest pain. No palpitations. No fever. PHYSICAL EXAM: Alert and oriented times three. Pulse 58, blood pressure 100/60. Respirations 16, temperature 98 degrees, pulse ox 97% on room air. HEENT: Conjunctivae normal. Neck: No jugular venous distention. Cardiovascular: S1, S2. Respiratory: Breath sounds diminished in the bases. No rhonchi and no crackles. ABDOMEN: Soft, nontender. No mass palpable. Legs: No edema. No swelling. Central nervous system: No focal deficits. LABS: WBC 4.2, hemoglobin 12.9, and total bili is 2.2. AST is 86 and ALT is 260. ASSESSMENT: 1. Acute abdominal pain. Possibly cholelithiasis and cholecystitis. 2. Possible CBD stone with AST, ALT, elevated bilirubin, status post ERCP, CBD stone extraction as well as biliary stent placement. 3. History of chronic obstructive pulmonary disease. 4. History of nicotine dependence. 5. History of THC. 6. Hypoglycemia. RECOMMENDATIONS AND DISCUSSION: Recommend to continue current medications, continue symptomatic treatment. Otherwise, at this time, recommend repeat labs. Closely follow with surgery. Antibiotics and laparoscopic cholecystectomy. Follow closely with gastroenterology. Prognosis guarded. Discussed with family and the patient. Further recommendations to follow. MMODL / IJN: [id number] / MTDD
[2017-06-09] MEDS: AMPICILLIN-SULBACTAM 1.5 GM in SODIUM CHLORIDE 0.9% 50 ML IVPB SCH ×4 (00:22→17:50)
[2017-06-09 07:10] LABS: Basophils % (A) 1 %; Eosinophils # (A) 0.2 k/uL (0-0.7); Eosinophils % (A) 3 %; HCT 37.4 % (39.0-53.0); HGB 12.5 gm/dL (13.0-17.5); Lymphocytes # (A) 0.6 k/uL (1.0-4.8); Lymphocytes % (A) 12 %; MCH 32.4 pg (25.0-35.0); MCHC 33.4 g/dL (31.0-37.0); Mean Platelet Volume 7.5; Monocytes # (A) 0.3 k/uL (0-1.0); Monocytes % (A) 7 %; Neutrophils # (A) 3.5 k/uL (1.3-7.7); Neutrophils % (A) 76 %; Platelet Count 177 k/uL (150-450); RBC 3.86 m/uL (4.30-5.90); RDW 13.9 % (11.5-15.5); WBC 4.6 k/uL (3.8-10.6)
[2017-06-09 07:25] LABS: ALT 221 U/L (21-72); AST 80 U/L (17-59); Albumin 3.3 g/dL (3.5-5.0); Alkaline Phosphatase 181 U/L (38-126); Anion Gap 10 mmol/L; Blood Urea Nitrogen 5 mg/dL (9-20); Carbon Dioxide 28 mmol/L (22-30); Chloride 108 mmol/L (98-107); Glucose 90 mg/dL (74-99); Potassium 3.8 mmol/L (3.5-5.1); Sodium 146 mmol/L (137-145); Total Bilirubin 1.6 mg/dL (0.2-1.3); Total Protein 5.7 g/dL (6.3-8.2)
[2017-06-09] MEDS: IPRATROPIUM-ALBUTEROL 3 ML NEB INHALATION SCH ×3 (08:31→18:56)
[2017-06-09] MEDS: NICOTINE 21MG/24HR PATCH TRANSDERM SCH (09:02)
[2017-06-09] MEDS: PANTOPRAZOLE 40 MG/10 ML VIAL IV SCH (09:03)
[2017-06-09] MEDS: ENOXAPARIN 40 MG/0.4 ML SYRINGE SQ SCH (09:03)
[2017-06-09] MEDS: SODIUM CHLORIDE 0.9% 1,000 ML IV SCH (10:53)
--- NOTE | 2017-06-09 11:58 | P.PN ---
Subjective Progress Note Date: 06/09/17 Principal diagnosis: Abdominal pain with acute cholecystitis and common bile duct obstruction This is a 67-year-old male patient who presented to the emergency department with acute abdominal discomfort with nausea and vomiting. He was found to have evidence of cholelithiasis with acute cholecystitis and common bile duct obstruction due to stone. The patient underwent ERCP with stone extraction and stent placement. He's doing well. He states he has very mild abdominal discomfort. Significantly improved since ERCP. The patient is scheduled to undergo cholecystectomy tomorrow morning. He is tolerating his diet. No nausea or vomiting. He is hemodynamically stable. Objective - Vital Signs Vital signs: Vital Signs Temp 97.9 F 06/09/17 09:06 Pulse 64 06/09/17 09:06 Resp 16 06/09/17 09:06 BP 113/73 06/09/17 09:06 Pulse Ox 98 06/09/17 09:06 Intake & Output 06/08/17 06/09/17 06/09/17 18:59 06:59 18:59 Intake Total 1040 180 Balance 1040 180 Weight 56.699 kg Intake: Intake, IV Titration 600 Amount D5w with KCl 20 Meq/l 1, 150 000 ml @ 75 mls/hr IV . [id number] [facility] Rx#:[id number] Sodium Chloride 0.9% 1, 450 000 ml @ 75 mls/hr IV . [id number] [facility] Rx#:[id number] Oral 440 180 Other: Voiding Method Toilet # Voids 3 2 2 - Constitutional General appearance: Present: average body habitus - EENT Eyes: Present: normal appearance ENT: Present: normal oropharynx Ears: bilateral: normal - Neck Neck: Present: normal ROM - Respiratory Respiratory: bilateral: CTA - Cardiovascular Rhythm: regular Heart sounds: normal: S1, S2 - Gastrointestinal General gastrointestinal: Present: decreased bowel sounds Localized gastrointestinal: tender: RUQ - Integumentary Integumentary: Present: normal - Neurologic Neurologic: Present: CNII-XII intact - Musculoskeletal Musculoskeletal: Present: gait normal - Psychiatric Psychiatric: Present: A&O x's 3 - Labs CBC & Chem 7: 06/09/17 06:22 06/09/17 06:22 Labs: Abnormal Lab Results - Last 24 Hours (Table) 04/01/18 04/01/18 Range/Units 06:22 06:22 RBC 3.86 L (4.30-5.90) m/uL Hgb 12.5 L (13.0-17.5) gm/dL Hct 37.4 L (39.0-53.0) % Lymphocytes # 0.6 L (1.0-4.8) k/uL Sodium 146 H (137-145) mmol/L Chloride 108 H (98-107) mmol/L BUN 5 L (9-20) mg/dL Creatinine 0.64 L (0.66-1.25) mg/dL Total Bilirubin 1.6 H (0.2-1.3) mg/dL AST 80 H (17-59) U/L ALT 221 H (21-72) U/L Alkaline Phosphatase 181 H (38-126) U/L Total Protein 5.7 L (6.3-8.2) g/dL Albumin 3.3 L (3.5-5.0) g/dL Assessment and Plan Assessment: Acute cholelithiasis with cholecystitis and common bile duct obstruction status post ERCP with stone extraction and stent placement History of COPD History of tongue cancer status post radiation and chemotherapy COPD Nicotine dependence Plan: Continue with current medication regimen. Continue pain medication as needed, anti-emetics. GI and DVT prophylaxis. Nothing by mouth after midnight for cholecystectomy tomorrow morning. Diet per surgery. We will continue to follow him closely.
--- NOTE | 2017-06-09 13:11 | P.PN ---
Subjective Progress Note Date: 06/09/17 Patient seen and examined at bedside. States his abdominal pain is improved. Tolerating diet. Has no complaints at this time. Objective - Vital Signs Vital signs: Vital Signs Temp 97.9 F 06/09/17 09:06 Pulse 72 06/09/17 12:26 Resp 16 06/09/17 09:06 BP 113/73 06/09/17 09:06 Pulse Ox 98 06/09/17 09:06 Intake & Output 06/08/17 06/09/17 06/09/17 18:59 06:59 18:59 Intake Total 1040 180 Balance 1040 180 Weight 56.699 kg Intake: Intake, IV Titration 600 Amount D5w with KCl 20 Meq/l 1, 150 000 ml @ 75 mls/hr IV . [id number] [facility] Rx#:[id number] Sodium Chloride 0.9% 1, 450 000 ml @ 75 mls/hr IV . [id number] [facility] Rx#:[id number] Oral 440 180 Other: Voiding Method Toilet # Voids 3 2 2 - Constitutional General appearance: Present: cooperative, no acute distress - EENT ENT: Present: hearing grossly normal - Respiratory Details: No difficulty with respiration - Gastrointestinal Gastrointestinal Comment(s): Soft, nontender, nondistended, no rebound, no guarding - Psychiatric Psychiatric: Present: A&O x's 3 - Labs CBC & Chem 7: 06/09/17 06:22 06/09/17 06:22 Labs: Abnormal Lab Results - Last 24 Hours (Table) 06/09/17 06/09/17 Range/Units 06:22 06:22 RBC 3.86 L (4.30-5.90) m/uL Hgb 12.5 L (13.0-17.5) gm/dL Hct 37.4 L (39.0-53.0) % Lymphocytes # 0.6 L (1.0-4.8) k/uL Sodium 146 H (137-145) mmol/L Chloride 108 H (98-107) mmol/L BUN 5 L (9-20) mg/dL Creatinine 0.64 L (0.66-1.25) mg/dL Total Bilirubin 1.6 H (0.2-1.3) mg/dL AST 80 H (17-59) U/L ALT 221 H (21-72) U/L Alkaline Phosphatase 181 H (38-126) U/L Total Protein 5.7 L (6.3-8.2) g/dL Albumin 3.3 L (3.5-5.0) g/dL Assessment and Plan Plan: 67-year-old male with cholelithiasis and history of choledocholithiasis status post ERCP with stent placement - Bilirubin levels continued to decrease - Nothing by mouth after midnight - Will continue to follow LFTs and plan for cholecystectomy on June 10
[2017-06-10] MEDS: AMPICILLIN-SULBACTAM 1.5 GM in SODIUM CHLORIDE 0.9% 50 ML IVPB SCH ×4 (00:29→18:27)
[2017-06-10] MEDS: SODIUM CHLORIDE 0.9% 1,000 ML IV SCH ×3 (00:29→18:27)
[2017-06-10 06:54] LABS: Basophils % (A) 1 %; Eosinophils # (A) 0.3 k/uL (0-0.7); Eosinophils % (A) 6 %; HCT 35.6 % (39.0-53.0); HGB 12.2 gm/dL (13.0-17.5); Lymphocytes # (A) 0.5 k/uL (1.0-4.8); Lymphocytes % (A) 11 %; MCH 32.9 pg (25.0-35.0); MCHC 34.2 g/dL (31.0-37.0); MCV 96.2 fL (80.0-100.0); Mean Platelet Volume 7.6; Monocytes # (A) 0.3 k/uL (0-1.0); Monocytes % (A) 7 %; Neutrophils % (A) 73 %; Platelet Count 163 k/uL (150-450); RDW 13.8 % (11.5-15.5); WBC 4.2 k/uL (3.8-10.6)
[2017-06-10 07:07] LABS: ALT 180 U/L (21-72); AST 67 U/L (17-59); Alkaline Phosphatase 136 U/L (38-126); Anion Gap 10 mmol/L; Blood Urea Nitrogen 5 mg/dL (9-20); Carbon Dioxide 27 mmol/L (22-30); Chloride 109 mmol/L (98-107); Glucose 86 mg/dL (74-99); Potassium 3.7 mmol/L (3.5-5.1); Sodium 146 mmol/L (137-145); Total Bilirubin 1.2 mg/dL (0.2-1.3); Total Protein 5.2 g/dL (6.3-8.2)
[2017-06-10] MEDS: PANTOPRAZOLE 40 MG/10 ML VIAL IV SCH (07:33)
[2017-06-10] MEDS: NICOTINE 21MG/24HR PATCH TRANSDERM SCH (07:34)
[2017-06-10] MEDS: IPRATROPIUM-ALBUTEROL 3 ML NEB INHALATION SCH ×3 (07:43→19:27)
[2017-06-10] MEDS: ENOXAPARIN 40 MG/0.4 ML SYRINGE SQ SCH (08:12)
[2017-06-10] MEDS ORDERED: MORPHINE SULF 5MG/10ML VL IV PRN (11:38)
[2017-06-10] MEDS ORDERED: DEXAMETHASONE SOD PHOSPHATE 10 MG/ML 1 ML VIAL IV ONE (11:38)
[2017-06-10] MEDS ORDERED: ONDANSETRON 4 MG/2 ML VIAL IVP ONE ×2 (11:38→12:10)
[2017-06-10] MEDS ORDERED: IV FLUID CONTINUATION 1,000 ML IV ONE (11:42)
[2017-06-10] MEDS ORDERED: LIDOCAINE 4% LTA KIT (4 ML) TOPICAL ONE (12:00)
[2017-06-10] MEDS ORDERED: LIDOCAINE 4% (PF) 5 ML AMP IH ONE (12:15)
[2017-06-10] MEDS ORDERED: LIDOCAINE 2% (PF) 20 MG/ML 2 ML AMP INHALATION ONE (12:15)
[2017-06-10] MEDS ORDERED: ROCURONIUM BROMIDE 10 MG/ML 10 ML VIAL IV ONE (12:33)
[2017-06-10] MEDS ORDERED: MIDAZOLAM 2 MG/2 ML VIAL ONE (12:33)
[2017-06-10] MEDS ORDERED: ePHEDrine SULFATE/0.9% NACL/PF 50 MG/5 ML SYRINGE IV ONE (12:33)
[2017-06-10] MEDS ORDERED: DEXAMETHASONE SOD PHOS (MDV) 100 MG/10 ML VIAL ONE (12:33)
[2017-06-10] MEDS ORDERED: fentaNYL (PF) 50 MCG/ML 2 ML AMP ONE (12:33)
[2017-06-10] MEDS ORDERED: PROPOFOL 10 MG/ML 20 ML VIAL IV ONE (12:33)
[2017-06-10] MEDS ORDERED: GLYCOPYRROLATE 0.2 MG/ML 2 ML VIAL ONE (12:33)
[2017-06-10] MEDS ORDERED: NEOSTIGMINE 1 MG/ML 10 ML VIAL ONE (12:33)
[2017-06-10] MEDS ORDERED: KETOROLAC 30 MG/ML 1 ML VIAL ONE (12:33)
[2017-06-10] MEDS ORDERED: LACTATED RINGERS 1,000 ML IV ONE ×2 (13:00)
[2017-06-10] MEDS ORDERED: BUPIVACAINE (PF) 0.5% 30 ML VIAL SQ ONE ×2 (13:00)
[2017-06-10] MEDS ORDERED: LIDOCAINE 1%-EPI 1:100,000 30 ML VIAL SQ ONE ×2 (13:00)
--- NOTE | 2017-06-10 14:10 | P.OP ---
Date of Procedure: 06/10/17 Preoperative Diagnosis: Choledocholithiasis Postoperative Diagnosis: Same Anesthesia: JEFFREYA Surgeon: Ammon Kwon Condition: stable Disposition: PACU Indications for Procedure: This is a 67-year-old male presented with obstructive jaundice was found have choledocholithiasis and underwent ERCP with sphincterotomy and stenting and stone removal. His bilirubins and trended down to normal. I described the risks benefits and alternatives to laparoscopic cholecystectomy including risks of bleeding infection damage surrounding tissue need further operation retained stone and damage to common bile duct he stated he understood agreed and consented Description of Procedure: Patient was brought into the operative suite remained in the supine position underwent general endotracheal anesthesia per Department of anesthesia he was prepped and draped in usual sterile fashion timeout was performed correct patient correct procedure correct site was verified a 12 mm incision was made just to the right of the umbilicus and using a 12 mm Visiport and a 10 mm scope the abdomen was entered under direct visualization and insufflated no injuries were noted 35 mm ports were placed in the right upper quadrant. The gallbladder was identified grasped and retracted adhesions to the gallbladder were taken down bluntly. The gallbladder was noted to be thickened with multiple impacted stones. The cystic duct was noted to be markedly dilated this was partially expected secondary to the patient's history of obstructive jaundice. The cystic duct and cystic artery were skeletonized and a critical view of safety was obtained. Given the diameter of the cystic duct a 45 mm cotto load Endo FELICIA stapler was used to staple across the cystic duct prior to this the 5 mm port in the subxiphoid region was upsized to a 12 mm port to accommodate the stapler. The cystic artery was doubly clipped and ligated. The gallbladder was then removed the liver bed using Bovie electrocautery. It was brought through the 12 mm port site in the subxiphoid region using an Endo Catch bag. The liver bed was inspected for hemostasis which was achieved and irrigated. The 12 mm subxiphoid port site was closed with 0 Vicryl in a figure- of-eight fashion with 8 of a Theodore-Natividad suture passer. The abdomen was desufflated all ports were removed under direct visualization and hemostasis was noted. The skin was closed with 4-0 Vicryl and skin glue. The gallbladder was inspected on the back table and cystic duct was noted to be stapled with only 1 ductal structure. Patient tolerated procedure well there are no apparent complications
[2017-06-10] MEDS: LACTATED RINGERS 1,000 ML IV SCH (15:25)
--- NOTE | 2017-06-10 17:53 | P.PN ---
Subjective 67-year-old male patient who presented to the emergency department with acute abdominal discomfort with nausea and vomiting. He was found to have evidence of cholelithiasis with acute cholecystitis and common bile duct obstruction due to stone. The patient underwent ERCP with stone extraction and stent placement. He's doing well. He states he has very mild abdominal discomfort. Significantly improved since ERCP. The patient is scheduled to undergo cholecystectomy tomorrow morning. He is tolerating his diet. No nausea or vomiting. He is hemodynamically stable. 06/10/2017 Patient the underwent cholecystectomy feeling much better today. his abdominal pain is minimal. Constitutional: Denied any fatigue denied any fever. Cardio vascular: denied any chest pain, palpitations Gastrointestinal denied any nausea vomiting Pulmonary: Denied any shortness of breath cough Neurologic denied any new focal deficits Objective - Vital Signs Vital signs: Vital Signs Temp 97.9 F 06/10/17 15:45 Pulse 57 L 06/10/17 17:30 Resp 17 06/10/17 17:30 BP 128/80 06/10/17 17:30 Pulse Ox 100 06/10/17 17:30 Intake & Output 06/09/17 06/10/17 06/10/17 18:59 06:59 18:59 Intake Total 1254 0 800 Output Total 10 Balance 1254 0 790 Weight 56.699 kg Intake: IV 800 Intake, IV Titration 600 Amount Sodium Chloride 0.9% 1, 600 000 ml @ 75 mls/hr IV . [id number] [facility] Rx#:[id number] Oral 654 0 Output: Estimated Blood Loss 10 Other: Voiding Method Toilet Toilet # Voids 2 2 2 - Exam PHYSICAL EXAMINATION: GENERAL: The patient is alert and oriented x3, not in any acute distress. Well developed, well nourished. HEENT: Pupils are round and equally reacting to light. EOMI. No scleral icterus. No conjunctival pallor. Normocephalic, atraumatic. No pharyngeal erythema. No thyromegaly. CARDIOVASCULAR: S1 and S2 present. No murmurs, rubs, or gallops. PULMONARY: Chest is clear to auscultation, no wheezing or crackles. ABDOMEN: Soft, nontender, hypoactive bowel sounds surgical sites clean MUSCULOSKELETAL: No joint swelling or deformity. EXTREMITIES: No cyanosis, clubbing, or pedal edema. NEUROLOGICAL: Gross neurological examination did not reveal any focal deficits. SKIN: No rashes. - Labs CBC & Chem 7: 06/10/17 06:39 06/10/17 06:39 Labs: Abnormal Lab Results - Last 24 Hours (Table) 06/10/17 06/10/17 Range/Units 06:39 06:39 RBC 3.70 L (4.30-5.90) m/uL Hgb 12.2 L (13.0-17.5) gm/dL Hct 35.6 L (39.0-53.0) % Lymphocytes # 0.5 L (1.0-4.8) k/uL Sodium 146 H (137-145) mmol/L Chloride 109 H (98-107) mmol/L BUN 5 L (9-20) mg/dL AST 67 H (17-59) U/L ALT 180 H (21-72) U/L Alkaline Phosphatase 136 H (38-126) U/L Total Protein 5.2 L (6.3-8.2) g/dL Albumin 3.0 L (3.5-5.0) g/dL Assessment and Plan Plan: Acute cholelithiasis with cholecystitis and common bile duct obstruction status post ERCP with stone extraction and stent placement, patient is status post cholecystectomy postoperative day 0. Well-controlled pain History of COPD History of tongue cancer status post radiation and chemotherapy COPD Nicotine dependence julieta: Continue with current medication regimen. Continue pain medication as needed, anti-emetics. GI and DVT prophylaxis. Diet per surgery. We will continue to follow him closely.
[2017-06-11] MEDS: AMPICILLIN-SULBACTAM 1.5 GM in SODIUM CHLORIDE 0.9% 50 ML IVPB SCH ×3 (00:57→11:20)
[2017-06-11 01:45] VITALS: RESP 16
[2017-06-11 06:56] VITALS: BP 101/59; TEMP 97.9
[2017-06-11] MEDS: PANTOPRAZOLE 40 MG/10 ML VIAL IV SCH (06:57)
[2017-06-11] MEDS: NICOTINE 21MG/24HR PATCH TRANSDERM SCH (06:58)
[2017-06-11] MEDS: ENOXAPARIN 40 MG/0.4 ML SYRINGE SQ SCH (06:58)
[2017-06-11] MEDS: LACTATED RINGERS 1,000 ML IV SCH (06:58)
[2017-06-11 07:07] LABS: Basophils % (A) 0 %; Eosinophils % (A) 0 %; HCT 36.3 % (39.0-53.0); HGB 12.2 gm/dL (13.0-17.5); Lymphocytes # (A) 0.3 k/uL (1.0-4.8); Lymphocytes % (A) 3 %; MCH 33.1 pg (25.0-35.0); MCHC 33.6 g/dL (31.0-37.0); MCV 98.6 fL (80.0-100.0); Mean Platelet Volume 7.8; Monocytes # (A) 0.5 k/uL (0-1.0); Monocytes % (A) 5 %; Neutrophils # (A) 7.5 k/uL (1.3-7.7); Neutrophils % (A) 90 %; Platelet Count 203 k/uL (150-450); RBC 3.68 m/uL (4.30-5.90); RDW 13.8 % (11.5-15.5); WBC 8.4 k/uL (3.8-10.6)
[2017-06-11 07:18] LABS: Albumin 3.4 g/dL (3.5-5.0); Anion Gap 10 mmol/L; Carbon Dioxide 26 mmol/L (22-30); Chloride 106 mmol/L (98-107); Glucose 147 mg/dL (74-99); Sodium 142 mmol/L (137-145); Total Bilirubin 1.3 mg/dL (0.2-1.3); Total Protein 5.8 g/dL (6.3-8.2)
[2017-06-11 07:25] LABS: ALT 177 U/L (21-72); AST 70 U/L (17-59); Alkaline Phosphatase 130 U/L (38-126); Blood Urea Nitrogen 8 mg/dL (9-20); Potassium 4.1 mmol/L (3.5-5.1)
[2017-06-11] MEDS: IPRATROPIUM-ALBUTEROL 3 ML NEB INHALATION SCH ×2 (09:00→14:03)
[2017-06-11 09:11] VITALS: PULSE 76
--- NOTE | 2017-06-11 09:51 | P.PN ---
Subjective Progress Note Date: 06/11/17 Patient is doing very well status post laparoscopic cholecystectomy. He has no complaints today tolerating his diet overnight. Pain is well-controlled. No fevers no chills. No nausea vomiting. Objective - Vital Signs Vital signs: Vital Signs Temp 97.9 F 06/11/17 06:56 Pulse 76 06/11/17 09:11 Resp 16 06/11/17 07:05 BP 101/59 06/11/17 06:56 Pulse Ox 100 06/11/17 06:56 Intake & Output 06/10/17 06/11/17 06/11/17 18:59 06:59 18:59 Intake Total 800 2380 250 Output Total 10 Balance 790 2380 250 Weight 56.699 kg Intake: IV 800 Intake, IV Titration 1300 Amount Ampicillin-Sulbactam 1.5 100 gm In Sodium Chloride 0.9 % 50 ml @ 100 mls/hr IVPB Q6HR DANN Rx#:[id number] Sodium Chloride 0.9% 1, 1200 000 ml @ 75 mls/hr IV . [id number] DANN Rx#:[id number] Oral 1080 250 Output: Estimated Blood Loss 10 Other: Voiding Method Toilet Toilet Toilet # Voids 2 3 1 - Constitutional General appearance: Present: cooperative - Respiratory Details: Nonlabored - Cardiovascular Details: Regular rate and rhythm - Gastrointestinal Gastrointestinal Comment(s): Soft nondistended nontender incisions clean dry and intact - Psychiatric Psychiatric: Present: A&O x's 3 - Labs CBC & Chem 7: 06/11/17 06:29 06/11/17 06:29 Labs: Abnormal Lab Results - Last 24 Hours (Table) 06/11/17 06/11/17 Range/Units 06:29 06:29 RBC 3.68 L (4.30-5.90) m/uL Hgb 12.2 L (13.0-17.5) gm/dL Hct 36.3 L (39.0-53.0) % Lymphocytes # 0.3 L (1.0-4.8) k/uL BUN 8 L (9-20) mg/dL Creatinine 0.61 L (0.66-1.25) mg/dL Glucose 147 H (74-99) mg/dL AST 70 H (17-59) U/L ALT 177 H (21-72) U/L Alkaline Phosphatase 130 H (38-126) U/L Total Protein 5.8 L (6.3-8.2) g/dL Albumin 3.4 L (3.5-5.0) g/dL Assessment and Plan Assessment: Postop day 1 laparoscopic cholecystectomy secondary to choledocholithiasis Plan: Patient doing very well postop day 1. He may have a regular low-fat diet. He is stable for discharge from surgical standpoint he can follow-up with me in 1- 2 weeks. He'll need a follow-up with Dr. Dallas in 1 month.
[2017-06-11 10:22] VITALS: BMI 20.1
[2017-06-11] MEDS: SODIUM CHLORIDE 0.9% 1,000 ML IV SCH (11:22)
--- NOTE | 2017-06-11 13:30 | P.DS ---
Providers Date of admission: 06/06/17 16:02 Attending physician: Cleveland Faust Consults: 06/06/17 16:03 Consult Physician Urgent Consulting Provider: Ammon Kwon Consult Reason/Comments: abd pain Do you want consulting provider notified?: Yes 06/06/17 17:08 Consult Physician Routine Consulting Provider: Taylor Dallas Consult Reason/Comments: Choledocholithiasis Do you want consulting provider notified?: Yes Primary care physician: [facility] Course: 67-year-old male patient who presented to the emergency department with acute abdominal discomfort with nausea and vomiting. He was found to have evidence of cholelithiasis with acute cholecystitis and common bile duct obstruction due to stone. The patient underwent ERCP with stone extraction and stent placement. He's doing well. He states he has very mild abdominal discomfort. Significantly improved since ERCP. The patient is scheduled to undergo cholecystectomy tomorrow morning. He is tolerating his diet. No nausea or vomiting. He is hemodynamically stable. 06/10/2017 Patient the underwent cholecystectomy feeling much better today. his abdominal pain is minimal. 06/11/2017 Patient is clinically doing well postoperative day one patient will be discharged today will not require any anti-biotics. GENERAL: The patient is alert and oriented x3, not in any acute distress. Well developed, well nourished. HEENT: Pupils are round and equally reacting to light. EOMI. No scleral icterus. No conjunctival pallor. Normocephalic, atraumatic. No pharyngeal erythema. No thyromegaly. CARDIOVASCULAR: S1 and S2 present. No murmurs, rubs, or gallops. PULMONARY: Chest is clear to auscultation, no wheezing or crackles. ABDOMEN: Soft, nontender, hypoactive bowel sounds surgical sites clean MUSCULOSKELETAL: No joint swelling or deformity. EXTREMITIES: No cyanosis, clubbing, or pedal edema. NEUROLOGICAL: Gross neurological examination did not reveal any focal deficits. SKIN: No rashes. Acute cholelithiasis with cholecystitis and common bile duct obstruction status post ERCP with stone extraction and stent placement, patient is status post cholecystectomy postoperative day 1. Well-controlled pain History of COPD History of tongue cancer status post radiation and chemotherapy COPD Nicotine dependence Patient Condition at Discharge: Fair Plan - Discharge Summary New Discharge Prescriptions: New HYDROcodone/APAP 5-325MG [[place] 5-325] 1 tab PO Q6HR PRN #20 tab PRN Reason: Pain No Action Ipratropium Darragh [Atrovent Hfa] 1 puff INHALATION RT-BID Albuterol Inhaler [Ventolin Hfa Inhaler] 1 puff INHALATION RT-BID Discharge Medication List Albuterol Inhaler [Ventolin Hfa Inhaler] 1 puff INHALATION RT-BID 07/30/16 [ History] Ipratropium Darragh [Atrovent Hfa] 1 puff INHALATION RT-BID 07/30/16 [History] HYDROcodone/APAP 5-325MG [[place] 5-325] 1 tab PO Q6HR PRN #20 tab 06/11/17 [Rx] Follow up Appointment(s)/Referral(s): Ammon Kwon DO [Doctor of Osteopathic Medicine] - 06/24/17 11:00 am Taylor Dallas MD [STAFF PHYSICIAN] - 07/11/17 4:00 pm Jozef Cross DO [Primary Care Provider] - 06/14/17 11:20 am (Appointment set with Chantale NICOLE) Patient Instructions/Handouts: Laparoscopic Cholecystectomy (DC) Discharge Disposition: HOME SELF-CARE
[2017-06-11] MEDS ORDERED: MORPHINE SULFATE 4MG/4ML SYRG IV PRN (14:15)
[2017-06-12] MEDS ORDERED: PANTOPRAZOLE 40 MG TABLET PO SCH (07:30)
--- NOTE | 2017-06-17 09:26 | CDI ---
Last Revision, February 2017 Documentation Clarification Form Date: 06/17/17 From: April Cuellar Phone: If you have a question regarding this query, please contact Kymberly Small at [phone] between 8am and 5pm Admit Date: 06/06/2017 4:02:00 PM Patient Name: Benitez Solis Visit Number: [id number] Discharge Date: 06/11/17 ATTENTION: The Clinical Documentation Specialists (CDI) and [facility] Coding Staff appreciate your assistance in clarifying documentation. Please respond to the clarification below the line at the bottom and electronically sign. The CDI & [facility] Coding staff will review the response and follow-up if needed. Please note: Queries are made part of the Legal Health Record. If you have any questions, please contact the author of this message via ITS. Dr. Doretha Alan Acute cholecystitis and common bile duct obstruction due to stone is documented throughout the chart. The pathology report states chronic cholecystitis and cholelithiasis. Clinical Indicators: Acute abdominal pain, common bile duct obstruction, elevated LFTs Lab findings: Total bili 5.4, AST 262, ALT 462, Alk phos 227 Pathology findings: Chronic cholecystitis. Cholelithiasis Vital Signs: T. 98.1, P. 78, R. 18, BP 114/71, BP 114/71 Treatment: ERCP with biliary sphincterotomy, balloon stone extraction, CBD stent placement on 06/07 and laparoscopic cholecystectomy on 06/10 In your professional opinion, can you please clarify the acuity of the cholecystitis? Acute Chronic Acute on Chronic Other, please specify Unable to determine MTDD
--- NOTE | 2017-06-25 15:52 | CDI ---
Last Revision, February 2017 Documentation Clarification Form Date: 06/25/17 From: April Cuellar Phone: If you have a question regarding this query, please contact Kymberly Small at [phone] between 8am and 5pm Admit Date: 06/06/2017 4:02:00 PM Patient Name: Benitez Solis Visit Number: [id number] Discharge Date: 06/11/17 ATTENTION: The Clinical Documentation Specialists (CDI) and [facility] Coding Staff appreciate your assistance in clarifying documentation. Please respond to the clarification below the line at the bottom and electronically sign. The CDI & [facility] Coding staff will review the response and follow-up if needed. Please note: Queries are made part of the Legal Health Record. If you have any questions, please contact the author of this message via ITS. Dr. Doretha Alan Thank you for signing the previous query. Please documenta a response before signing this query. Acute cholecystitis and common bile duct obstruction due to stone is documented throughout the chart. The pathology report states chronic cholecystitis and cholelithiasis. Clinical Indicators: Acute abdominal pain, common bile duct obstruction, elevated LFTs Lab findings: Total bili 5.4, AST 262, ALT 462, Alk phos 227 Pathology findings: Chronic cholecystitis. Cholelithiasis Vital Signs: T. 98.1, P. 78, R. 18, BP 114/71, BP 114/71 Treatment: ERCP with biliary sphincterotomy, balloon stone extraction, CBD stent placement on 06/07 and laparoscopic cholecystectomy on 06/10 In your professional opinion, can you please clarify the acuity of the cholecystitis? Acute Chronic Acute on Chronic Other, please specify Unable to determine Acute Which is my clinical impression MTDD
--- NOTE | 2017-07-08 12:13 | CDI ---
Last Revision, February 2017 Documentation Clarification Form Date: 07/08/17 From: April Cuellar Phone: If you have a question regarding this query, please contact Kymberly Small [phone] between 8am and 5pm. Admit Date: 06/06/2017 4:02:00 PM Patient Name: Benitez Solis Visit Number: [id number] Discharge Date: 06/11/17 ATTENTION: The Clinical Documentation Specialists (CDI) and [facility] Coding Staff appreciate your assistance in clarifying documentation. Please respond to the clarification below the line at the bottom and electronically sign. The CDI & [facility] Coding staff will review the response and follow-up if needed. Please note: Queries are made part of the Legal Health Record. If you have any questions, please contact the author of this message via ITS. Dr. Doretha Alan This patient is documented to be "thin" and received a nutritional consultation. He was given nutritional supplements (Ensure Enlive) and is documented to be underweight. He is a previous cancer patient (tongue cancer) and is 89% of his usual body weight. (Lost 11% in 10 months, due to radiation/ oral cancer and decreased intake.) Patient's BMI is 20.1 Patient history/risk factors: Abdominal pain secondary to cholelithiasis and cholecystitis, history of tongue cancer. Lab findings: Albumin 3.9 on admission and 3.4 on discharge. Protein 6.5 on admission and 5.8 on discharge. Vital Signs: T. 98.1, P. 78, R 18, BP 114/71 Other Clinical Indicators: Normal muscle tone and function. No documentation of weakness or cachexia. In your professional opinion, can you please document a reason for the above findings? Underweight Malnutrition(specify degree) Other, please specify Unable to determine Underweight MTDD
== END 2017-06-11 14:05 | disposition home or self-care (01) | DRG 419 ==
LOC: EC 12:31 → 3SUR 16:02
PROVIDERS: ADMIT Hospitalist; ATTEND Hospitalist
PROC: 0FC98ZZ Extirpation of Matter from Common Bile Duct, Via Natural or Artificial Opening Endoscopic (ICD-10-PCS; 2017-06-10)
PROC: 0F798DZ Dilation of Common Bile Duct with Intraluminal Device, Via Natural or Artificial Opening Endoscopic (ICD-10-PCS; 2017-06-10)
PROC: 0FT44ZZ Resection of Gallbladder, Percutaneous Endoscopic Approach (ICD-10-PCS; principal; 2017-06-10 12:00)
DX: K80.43 Calculus of bile duct with acute cholecystitis with obstruction (principal); J44.9 Chronic obstructive pulmonary disease, unspecified; E16.2 Hypoglycemia, unspecified; R63.6 Underweight; F17.210 Nicotine dependence, cigarettes, uncomplicated; Z92.3 Personal history of irradiation; Z92.21 Personal history of antineoplastic chemotherapy; Z85.810 Personal history of malignant neoplasm of tongue; Z85.89 Personal history of malignant neoplasm of other organs and systems; Z82.49 Family history of ischemic heart disease and other diseases of the circulatory system; Z68.20 Body mass index [BMI] 20.0-20.9, adult
CPT/HCPCS: 36415; 43262; 43274; 43277; 74177; 74330; 76705; 80053; 82150; 83690; 85025; 88304; 93005; 94640; 96361; 96374; 99285

== ENCOUNTER 2017-08-16 11:53 | Day surgery (SDC) | payer MEDICARE ==
[2017-08-15 12:46] VITALS: BMI 19.3
[~2017-08-16 11:53] MED LIST: LACTATED RINGERS 1,000 ML IV SCH
[2017-08-16] MEDS ORDERED: INDOMETHACIN 50MG SUPPOSITORY RECTAL ONE (13:11)
[2017-08-16] MEDS ORDERED: LEVOFLOXACIN 500MG-D5W PMX 500 MG in DEXTROSE/WATER 1 100ML.BAG IVPB STA (13:12)
[2017-08-16 13:15] VITALS: RESP 16; TEMP 97.7
[2017-08-16 13:32] LABS: Basophils % (A) 0 %; Eosinophils # (A) 0.2 k/uL (0-0.7); Eosinophils % (A) 2 %; HCT 43.9 % (39.0-53.0); Lymphocytes # (A) 0.6 k/uL (1.0-4.8); Lymphocytes % (A) 5 %; MCH 33.8 pg (25.0-35.0); MCHC 35.2 g/dL (31.0-37.0); Mean Platelet Volume 6.7; Monocytes # (A) 0.4 k/uL (0-1.0); Monocytes % (A) 4 %; Neutrophils # (A) 9.8 k/uL (1.3-7.7); Neutrophils % (A) 89 %; Platelet Count 214 k/uL (150-450); RBC 4.57 m/uL (4.30-5.90)
[2017-08-16 13:35] LABS: HGB 15.5 gm/dL (13.0-17.5)
[2017-08-16 13:38] LABS: INR 1.1 (<1.2); Partial Thromboplastin Time 25.2 sec (22.0-30.0); Prothrombin Time 10.8 sec (9.0-12.0)
[2017-08-16 13:42] LABS: ALT 24 U/L (21-72); AST 31 U/L (17-59); Albumin 4.6 g/dL (3.5-5.0); Alkaline Phosphatase 89 U/L (38-126); Anion Gap 12 mmol/L; Blood Urea Nitrogen 12 mg/dL (9-20); Calcium 9.3 mg/dL (8.4-10.2); Carbon Dioxide 25 mmol/L (22-30); Chloride 107 mmol/L (98-107); Glucose 90 mg/dL (74-99); Sodium 144 mmol/L (137-145); Total Bilirubin 0.7 mg/dL (0.2-1.3); Total Protein 7.3 g/dL (6.3-8.2)
[2017-08-16 13:47] LABS: Potassium 4.7 mmol/L (3.5-5.1)
[2017-08-16] MEDS ORDERED: PROPOFOL 10 MG/ML 20 ML VIAL IV ONE (14:40)
[2017-08-16] MEDS ORDERED: fentaNYL (PF) 50 MCG/ML 2 ML AMP ONE (14:40)
[2017-08-16] MEDS ORDERED: MIDAZOLAM 2 MG/2 ML VIAL ONE (14:40)
[2017-08-16] MEDS ORDERED: GLYCOPYRROLATE 0.2 MG/ML 2 ML VIAL ONE (14:40)
[2017-08-16] MEDS ORDERED: IOPAMIDOL-300 50ML BTL MISCELLANE ONE (15:31)
--- NOTE | 2017-08-16 15:34 | P.PCN ---
Date of Procedure: 08/16/17 Procedure(s) Performed: Brief history: Patient is a 67 year-old pleasant white male scheduled for an ERCP as part of evaluation of of choledocholithiasis. The patient was admitted to the hospital in May 2017 with elevated LFTs and jaundice and ERCP revealed 2 large stones in the distal common bile duct which are partially removed. He had a CBD stent placement done. Subsequently he had the Nitin a cholecystectomy performed and was discharged home. He scheduled for repeat ERCP with CBD stent removal and to evaluate for retained common bile duct stones. Patient to maintain has been complaining of intermittent right upper quadrant abdominal pain. Procedure performed: ERCP with CBD stent removal, extension of the biliary sphincterotomy and CBD balloon stone extraction Preoperative diagnoses: Retained common bile duct stone IV sedation per anesthesia: Procedure: After informed consent was obtained from the patient and after the risks benefits and complications including bleeding perforation and pancreatitis explained in detail the patient was brought into the endoscopy unit. The patient was placed in prone position and IV conscious sedation was administered by anesthesia under continuous monitoring. The Olympus side-viewing duodenoscope was then inserted into the mouth and esophagus intubated without any difficulty. The scope was gradually advanced into the stomach and duodenum. The major papilla was identified without any difficulty. Previously placed stent was identified which was removed using a snare. There was evidence of previous sphincterotomy noted. At this time the common bile duct was cannulated and upon injection of the dye there were 3 stones measuring 1 to medium-sized noted the proximal common bile duct. At this time the biliary sphincterotomy was extended by another 5 mm. Following this a guidewire was passed into the proximal CBD and a 12 mm balloon was passed over the guidewire into the proximal CBD and gently all 3 stones were removed with some difficulty. At this time an occlusion cholangiogram was performed and no other filling defects were seen and the patient tolerated the procedure well. The pancreatic duct was intentionally not cannulated during the entire procedure. Impression: 1. Dilated common bile duct with 3 filling defects he measuring 1 cm in size status post extension of the biliary sphincterotomy and balloon stone extraction as described above 2. Large periampullary diverticulum 3. Pancreatic duct intentionally not cannulated. Recommendations: The findings of this examination were discussed with the patient as well as a family. He was advised to remain on a clear liquid diet today. He'll be seen in the office in 4-6 weeks.
[2017-08-16] MEDS ORDERED: LACTATED RINGERS 1,000 ML IV ONE (16:05)
--- NOTE | 2017-08-16 16:12 | FL ---
EXAMINATION TYPE: FL ERCP biliary duct only DATE OF EXAM: 08/16/2017 CLINICAL HISTORY: Common bile duct calculi TECHNIQUE: Fluoroscopy. COMPARISON: None. FINDINGS/IMPRESSION: Fluoroscopic guidance was provided during procedure performed by Dr. Nicole. A t otal of 54 seconds of fluoroscopic time was utilized during the procedure and 1 spot images was acqui red demonstrate retrograde filling of the common bile duct from ERCP with multiple filling defects.
[2017-08-16 16:26] VITALS: BP 117/85; PULSE 87
== END 2017-08-16 16:53 | disposition home or self-care (01) ==
LOC: ORWHC2ENDO 11:53
PROVIDERS: ATTEND Internal Medicine Gastroenterology
DX: K80.50 Calculus of bile duct without cholangitis or cholecystitis without obstruction (principal); Z90.49 Acquired absence of other specified parts of digestive tract; J45.909 Unspecified asthma, uncomplicated; Z79.891 Long term (current) use of opiate analgesic; Z79.899 Other long term (current) drug therapy; F17.200 Nicotine dependence, unspecified, uncomplicated
CPT/HCPCS: 80053; 85025; 85610; 85730; 74328; 43264; 43275; 43262; J2250; J1956; J3010; J2704; Q9967; 43277

== ENCOUNTER → 2017-08-21 | Outpatient (CLI) | payer MEDICARE ==
[2017-08-21 16:00] LABS: HCT 44.5 % (39.0-53.0); HGB 14.6 gm/dL (13.0-17.5); MCH 32.4 pg (25.0-35.0); MCHC 32.7 g/dL (31.0-37.0); MCV 98.9 fL (80.0-100.0); Mean Platelet Volume 7.6; Platelet Count 179 k/uL (150-450); RDW 14.5 % (11.5-15.5); WBC 7.9 k/uL (3.8-10.6)
[2017-08-21 16:13] LABS: ALT 223 U/L (21-72); AST 152 U/L (17-59); Alkaline Phosphatase 348 U/L (38-126); Anion Gap 15 mmol/L; Blood Urea Nitrogen 12 mg/dL (9-20); Calcium 9.4 mg/dL (8.4-10.2); Carbon Dioxide 21 mmol/L (22-30); Chloride 105 mmol/L (98-107); Glucose 108 mg/dL (74-99); Potassium 4.3 mmol/L (3.5-5.1); Sodium 141 mmol/L (137-145); Total Protein 6.7 g/dL (6.3-8.2)
== END | disposition home or self-care (01) ==
LOC: LABWHC1 14:19
PROVIDERS: ATTEND Internal Medicine Gastroenterology
DX: R74.8 Abnormal levels of other serum enzymes (principal)
CPT/HCPCS: 36415; 80053; 85027

== ENCOUNTER 2017-08-23 15:55 | Inpatient (IN) | payer MEDICARE ==
[2017-08-23] MEDS: SODIUM CHLORIDE 0.9% 1,000 ML IV SCH (17:07)
[2017-08-23] MEDS ORDERED: LEVOFLOXACIN 750MG-D5W PMX 750 MG in DEXTROSE/WATER 1 150ML.BAG IVPB STA (17:29)
[2017-08-23] MEDS: PANTOPRAZOLE 40 MG/10 ML VIAL IVP SCH (17:46)
[2017-08-23] MEDS: NICOTINE 21MG/24HR PATCH TRANSDERM SCH (17:46)
[2017-08-23] MEDS ORDERED: IPRATROPIUM-ALBUTEROL 3 ML NEB INHALATION PRN (18:02)
[2017-08-23 20:10] LABS: Basophils % (A) 1 %; Eosinophils # (A) 0.6 k/uL (0-0.7); Eosinophils % (A) 8 %; HCT 38.6 % (39.0-53.0); HGB 12.7 gm/dL (13.0-17.5); Lymphocytes # (A) 0.7 k/uL (1.0-4.8); Lymphocytes % (A) 10 %; Macrocytosis Slight; Mean Platelet Volume 7.3; Monocytes # (A) 0.3 k/uL (0-1.0); Monocytes % (A) 4 %; Neutrophils # (A) 5.4 k/uL (1.3-7.7); Neutrophils % (A) 76 %; Platelet Count 197 k/uL (150-450); RBC 3.86 m/uL (4.30-5.90); RDW 15.3 % (11.5-15.5); WBC 7.1 k/uL (3.8-10.6)
[2017-08-23 20:12] LABS: INR 1.2 (<1.2); Prothrombin Time 11.2 sec (9.0-12.0)
[2017-08-23 20:35] LABS: ALT 186 U/L (21-72); AST 96 U/L (17-59); Albumin 3.8 g/dL (3.5-5.0); Alkaline Phosphatase 316 U/L (38-126); Anion Gap 11 mmol/L; Blood Urea Nitrogen 15 mg/dL (9-20); Calcium 8.8 mg/dL (8.4-10.2); Carbon Dioxide 25 mmol/L (22-30); Chloride 104 mmol/L (98-107); Glucose 98 mg/dL (74-99); Potassium 3.6 mmol/L (3.5-5.1); Sodium 140 mmol/L (137-145); Total Bilirubin 3.8 mg/dL (0.2-1.3); Total Protein 6.1 g/dL (6.3-8.2)
[2017-08-24] MEDS: SODIUM CHLORIDE 0.9% 1,000 ML IV SCH ×2 (04:52→14:14)
[2017-08-24] MEDS ORDERED: INDOMETHACIN 50MG SUPPOSITORY RECTAL ONE (06:00)
[2017-08-24 06:17] VITALS: RESP 20; TEMP 98.1
[2017-08-24] MEDS ORDERED: IV FLUID CONTINUATION 800 ML IV ONE (06:57)
[2017-08-24] MEDS ORDERED: PROPOFOL 10 MG/ML 20 ML VIAL IV ONE ×2 (07:18)
[2017-08-24] MEDS ORDERED: LIDOCAINE 1% INJ 10MG/ML (20 ML MDV) ONE ×2 (07:18)
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
[2017-08-24] MEDS ORDERED: IOPAMIDOL-300 50ML BTL MISCELLANE ONE (07:31)
--- NOTE | 2017-08-24 08:17 | P.PCN ---
Date of Procedure: 08/24/17 Procedure(s) Performed: Procedure: Endoscopic retrograde cholangiography with passing of the 11.5 mm balloon catheter across the sphincterotomy site fully inflated. Preoperative diagnosis: Jaundice and suspected retained common bile duct stones. Postoperative diagnosis: 1. Occlusion cholangiogram using the 11.5 mm balloon reveals dilated common bile duct but no filling defects to suggest retained common bile duct stones. 2. The 11.5 mm balloon catheter was used to sweep the common bile duct multiple times and was pulled out across the sphincterotomy area multiple times fully inflated. Preparation and sedation: Was provided by anesthesia. Brief clinical history: The patient is a 67-year-old male who was admitted in May of this year with epigastric pain and abnormal liver enzymes and was found to have cholelithiasis and choledocholithiasis. He underwent ERCP with sphincterotomy for extraction of common bile duct stones and subsequently had cholecystectomy. At the time of ERCP, he was found to have large common bile duct stones that could not be extracted and accordingly a stent was placed. The patient had the stent removed 08/16/2017 and the sphincterotomy was extended and 3 additional common bile duct stones were extracted. The patient had 2 episodes of epigastric pain, one shortly after the procedure that lasted several hours and had another similar episode few days later. The patient subsequently developed jaundice and repeat labs on the outpatient basis showed that his bilirubin to be 11. He is admitted to the hospital at this time because of his jaundice and suspected retained common bile duct stones. We were asked to see him in this regards. His bilirubin this morning is down to 3.5. Other details are summarized in the history and physical and dictated consultation and progress notes. Procedure: With the patient in the prone position and after informed consent and adequate sedation, I passed the Olympus video duodenoscope down the esophagus into the stomach then passed it through the pylorus into the duodenum and brought the area of the papilla and the prior sphincterotomy to view. There was a periampullary diverticulum. I used the cannulating catheter initially to inject dye into the common bile duct and that appeared dilated but no persistent filling defects were noted to suggest a retained common bile duct stone. Subsequently, I used the 11.5 mm balloon catheter to obtain an occlusion cholangiogram and then I used the 11.5 mm balloon catheter to sweep the common bile duct and it was passed fully inflated across the sphincterotomy site multiple times. There was no evidence of retained common bile duct stones. I did not need to extend the sphincterotomy area or place a stent. An occlusion cholangiogram was obtained with spot films documented then the endoscope was withdrawn. The patient tolerated the procedure well. Plan: The patient was reassured. Will allow regular diet. He can be discharged to follow as outpatient. I suspect he has passed a common bile duct stone spontaneously since his last procedure last week. Further plans can be made based on his course.
[2017-08-24 08:22] LABS: Basophils % (A) 1 %; Eosinophils # (A) 0.1 k/uL (0-0.7); Eosinophils % (A) 3 %; HCT 39.7 % (39.0-53.0); HGB 12.7 gm/dL (13.0-17.5); Lymphocytes # (A) 0.5 k/uL (1.0-4.8); Lymphocytes % (A) 10 %; MCH 32.5 pg (25.0-35.0); MCHC 31.9 g/dL (31.0-37.0); MCV 101.9 fL (80.0-100.0); Macrocytosis Slight; Mean Platelet Volume 7.1; Monocytes # (A) 0.3 k/uL (0-1.0); Monocytes % (A) 6 %; Neutrophils # (A) 4.1 k/uL (1.3-7.7); Neutrophils % (A) 80 %; Platelet Count 205 k/uL (150-450); RDW 15.5 % (11.5-15.5); WBC 5.1 k/uL (3.8-10.6)
[2017-08-24] MEDS: PANTOPRAZOLE 40 MG/10 ML VIAL IVP SCH (09:06)
[2017-08-24] MEDS: NICOTINE 21MG/24HR PATCH TRANSDERM SCH (09:07)
[2017-08-24 09:13] VITALS: BP 108/61; PULSE 56
[2017-08-24 10:09] LABS: ALT 161 U/L (21-72); AST 80 U/L (17-59); Albumin 3.2 g/dL (3.5-5.0); Alkaline Phosphatase 287 U/L (38-126); Anion Gap 8 mmol/L; Blood Urea Nitrogen 14 mg/dL (9-20); Calcium 8.7 mg/dL (8.4-10.2); Carbon Dioxide 24 mmol/L (22-30); Chloride 108 mmol/L (98-107); Glucose 123 mg/dL (74-99); Potassium 4.5 mmol/L (3.5-5.1); Sodium 140 mmol/L (137-145); Total Bilirubin 3.4 mg/dL (0.2-1.3); Total Protein 5.5 g/dL (6.3-8.2)
[2017-08-24 10:40] VITALS: BMI 18.1
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
--- NOTE | 2017-08-24 16:39 | P.DS ---
Providers Date of admission: 08/23/17 15:55 Attending physician: Cleveland Faust Consults: 08/23/17 16:53 Consult Physician Routine Consulting Provider: Taylor Dallas Consult Reason/Comments: jaundice Do you want consulting provider notified?: Yes Placement Type Exists?: Yes Primary care physician: Jozef Cross [facility] Course: Please refer to my HPI Plan - Discharge Summary Discharge Rx Participant: No New Discharge Prescriptions: No Action Ipratropium [place] [Atrovent Hfa] 1 puff INHALATION RT-BID Albuterol Inhaler [Ventolin Hfa Inhaler] 1 puff INHALATION RT-BID Discharge Medication List Albuterol Inhaler [Ventolin Hfa Inhaler] 1 puff INHALATION RT-BID 07/30/16 [ History] Ipratropium [place] [Atrovent Hfa] 1 puff INHALATION RT-BID 07/30/16 [History] Follow up Appointment(s)/Referral(s): Jozef Cross DO [Primary Care Provider] - 1 Week Ambulatory/Diagnostic Orders: Comprehensive Metabolic Panel [LAB.AMB] Location: Determined By Patient Comprehensive Metabolic Panel [LAB.AMB] Time Frame: 3 Days, Location: Determined By Patient Patient Instructions/Handouts: How to Stop Smoking (DC), Gallstones (DC) Discharge Disposition: HOME SELF-CARE
--- NOTE | 2017-08-25 17:37 | FL ---
Fluoroscopy INDICATION: History of common bile duct stones FINDINGS: Fluoroscopy time: 3.12 minutes of fluoroscopy time Images obtained: 2. There appears to be some prominence of the common bile duct and of the extrahepatic biliary ducts. A discrete filling defect is not identified. IMPRESSIONS: 1. Documentation of fluoroscopy.
== END 2017-08-24 14:22 | disposition home or self-care (01) | DRG 446 ==
LOC: 4MS4W 15:55
PROVIDERS: ADMIT Hospitalist; ATTEND Hospitalist
PROC: 0F798ZZ Dilation of Common Bile Duct, Via Natural or Artificial Opening Endoscopic (ICD-10-PCS; principal; 2017-08-23)
PROC: BF101ZZ Fluoroscopy of Bile Ducts using Low Osmolar Contrast (ICD-10-PCS; principal; 2017-08-23)
DX: K83.1 Obstruction of bile duct (principal); F12.90 Cannabis use, unspecified, uncomplicated; Z71.51 Drug abuse counseling and surveillance of drug abuser; F17.200 Nicotine dependence, unspecified, uncomplicated; J44.9 Chronic obstructive pulmonary disease, unspecified; Z82.49 Family history of ischemic heart disease and other diseases of the circulatory system; Z82.5 Family history of asthma and other chronic lower respiratory diseases; Z85.810 Personal history of malignant neoplasm of tongue; Z92.21 Personal history of antineoplastic chemotherapy; Z92.3 Personal history of irradiation; Z79.899 Other long term (current) drug therapy; Z90.49 Acquired absence of other specified parts of digestive tract
CPT/HCPCS: 43260; 74328; 80053; 85025; 85610

== ENCOUNTER → 2017-12-16 | Outpatient (CLI) | payer MEDICARE ==
[2017-12-16 07:43] LABS: Blood Urea Nitrogen 12 mg/dL (9-20)
--- NOTE | 2017-12-16 10:05 | CT ---
EXAMINATION TYPE: CT neck chest w con DATE OF EXAM: 12/16/2017 COMPARISON: CT neck 07/31/2016 HISTORY: malignant neoplasm base of tounge CT DLP: 528 mGycm CONTRAST: Patient injected with 100 mL of Isovue 300. TECHNIQUE: Axial images at 3 mm thick sections. Reconstructed images in the coronal plane and sagitt al plane are reviewed. FINDINGS: Limited CT sections are obtained the lung apices. Emphysematous changes are present. The tania ng apices otherwise appear clear. CT neck: There is fullness within the right torus tubarius and effacement of the fossa of Rosenmuller . The left side has lesser impression. Direct visualization of these regions is recommended. There ma y be some debris within the posterior nasopharynx. Senior [employer]st spaces are normal. There may be some s ubtle asymmetry within the posterior right tongue. This may be related to the patient's reported tong ue cancer. Parotid glands appear normal and symmetrical. Submandibular glands, are normal. Mucosal thickening is within right ethmoid air cell. Mucosal thickening is through the right maxillary sinus. Small rete ntion cyst or fluid may be within the inferior left maxillary sinus. Some additional mucosal thickeni ng is likely within residual ethmoid air cells. Bilateral uncinectomies have been performed. No susp icious adenopathy is evident. Previous enlarged right jugulodigastric lymph node is not evident at th is time. Piriform sinuses which had fullness on the right is not apparent currently. There is subtle asymmetry within the vocal cord level with slightly more prominent right side compare d to the left. Thyroid as visualized is normal. Osseous structures are normal. IMPRESSIONS: 1. Subtle asymmetry in the posterior right tongue may reflect the patient's reported tongue cancer. 2. There is some asymmetry and fullness through the torus tubarius and fossa of Rosenmuller the poste rior pharynx. Direct visualization of this area is recommended. 3. Paranasal sinus disease. Sinuses are postsurgical. EXAMINATION TYPE: CT neck chest w con DATE OF EXAM: 12/16/2017 COMPARISON: None HISTORY: malignant neoplasm base of tounge CT DLP: 528 mGycm, Automated exposure control for dose reduction was used. CONTRAST: Performed injected with 100 mL of Isovue 300. TECHNIQUE: Axial images were obtained at 5 mm thick sections. Reconstructed images are reviewed on [employer] computer in the coronal plane. FINDINGS: Portion of the thyroid visualized is normal. Emphysematous changes are present in the upper lung leyva. This is milder within the mid to lower tania ng leyva. No suspicious nodules or masses are evident. No enlarged mediastinal or hilar adenopathy is evident. The ascending aorta diameter at the level o f the main pulmonary artery is 3.1 cm. The main pulmonary artery diameter at the bifurcation is 2.2 cm. Coronary artery calcification is noted. Limited CT sections are obtained through the upper abdomen. Abdomen is essentially unremarkable. The adrenal glands appear normal. A small 1.0 cm cortical renal cyst is present on the anterior superior left kidney measuring 7 Hounsfield units. IMPRESSIONS: 1. No suspicious changes suggest metastatic disease. 2. Emphysema
== END | disposition home or self-care (01) ==
LOC: RADCTMAIN 06:56
PROVIDERS: ATTEND Otolaryngology
DX: C01 Malignant neoplasm of base of tongue (principal); J43.9 Emphysema, unspecified
CPT/HCPCS: 82565; 84520; 70491; 71260; 36415; Q9967

== ENCOUNTER → 2018-11-04 | Outpatient (CLI) | payer MEDICARE ==
[2018-11-04 10:40] LABS: Basophils % (A) 0 %; Eosinophils # (A) 0.3 k/uL (0-0.7); Eosinophils % (A) 3 %; HCT 45.9 % (39.0-53.0); HGB 15.7 gm/dL (13.0-17.5); Lymphocytes # (A) 0.7 k/uL (1.0-4.8); Lymphocytes % (A) 7 %; MCH 32.5 pg (25.0-35.0); MCHC 34.1 g/dL (31.0-37.0); MCV 95.4 fL (80.0-100.0); Mean Platelet Volume 6.9; Monocytes # (A) 0.6 k/uL (0-1.0); Monocytes % (A) 6 %; Neutrophils # (A) 8.1 k/uL (1.3-7.7); Neutrophils % (A) 82 %; Platelet Count 213 k/uL (150-450); RBC 4.82 m/uL (4.30-5.90); RDW 14.7 % (11.5-15.5); WBC 9.9 k/uL (3.8-10.6)
== END | disposition home or self-care (01) ==
LOC: LABWHC1 09:55
PROVIDERS: ATTEND Otolaryngology
DX: Z85.810 Personal history of malignant neoplasm of tongue (principal); Z92.3 Personal history of irradiation
CPT/HCPCS: 36415; 84443; 85025

== ENCOUNTER → 2019-03-02 | Outpatient (CLI) | payer MEDICARE ==
[2019-03-02 11:01] LABS: African American GFR (CKD) >90 (>60 ml/min/1.73 sqM); Blood Urea Nitrogen 13 mg/dL (9-20); Non-African American GFR(CKD) >90 (>60 ml/min/1.73 sqM)
--- NOTE | 2019-03-02 11:34 | CT ---
EXAMINATION TYPE: CT soft tissue neck w con DATE OF EXAM: 03/02/2019 COMPARISON: December 16, 2017 HISTORY: Follow up tongue cancer CT DLP: 355.3 mGycm CONTRAST: CT scan of the neck is performed with IV Contrast, patient injected with 100 mL of Isovue 300. Contrast enhanced CT of the neck was performed from the skull base through the lung apices. No definite asymmetry are noted at the base of the tongue on the right as reported previously. I do n ot see evidence for mass. Mild asymmetry is seen of the right-sided piriform sinus relative to its le ft-sided counterpart. No new masses identified. AIRWAY: The supraglottic, glottic, and subglottic portions of the airway appear patent and free of mass. SALIVARY GLANDS: The submandibular and parotid glands are free of mass or inflammatory process. THYROID GLAND: No nodules or masses seen. LYMPH NODES: No adenopathy seen greater than 1cm. LUNG APICES: No nodule or mass is seen. OTHER: Vascular structures are patent. No significant degenerative change of the cervical spine. N o abscess seen. Near-complete opacification right maxillary sinus. IMPRESSION: No definite asymmetry are noted at the base of the tongue on the right as reported previously. I do n ot see evidence for mass. Mild asymmetry is seen of the right-sided piriform sinus relative to its le ft-sided counterpart. No new masses identified.
== END | disposition home or self-care (01) ==
LOC: RADCTMAIN 10:20
PROVIDERS: ATTEND Otolaryngology
DX: Z08 Encounter for follow-up examination after completed treatment for malignant neoplasm (principal); Z85.810 Personal history of malignant neoplasm of tongue
CPT/HCPCS: 82565; 84520; 70491; 36415; Q9967

== ENCOUNTER → 2020-08-18 | Outpatient (CLI) | payer MEDICARE ==
--- NOTE | 2020-08-18 13:55 | CT ---
EXAMINATION TYPE: CT soft tissue neck wo con DATE OF EXAM: 08/18/2020 HISTORY: right submandibular neck pain COMPARISON: CT neck March 02, 2019 CT DLP: 293.1 mGycm. Automated Exposure Control for Dose Reduction was Utilized. TECHNIQUE: CT scan of the neck is performed without IV contrast, axial images are obtained, coronal and sagittal reformatted images are reviewed. FINDINGS: Lack of IV contrast was noted to lower sensitivity for evaluation for mucosal lesions and s ubcentimeter neck adenopathy. Airway: Moderate emphysematous change of visualized upper lungs redemonstrated. There is persistent m ild to moderate biapical pleural/parenchymal scarring slightly more prominent in the right lung apex versus left and more prominent from prior studies. For reference 2.3 x 0.7 cm scarlike opacity axial image 21 more prominent from prior study. Cannot entirely exclude developing spiculated nodule but fa vor postinflammatory scarring. Consider PET/CT to further evaluate. Asymmetry of level of piriform sinuses is stable. Remainder airway patent. Parotid/submandibular glands: New asymmetric mild to moderate fluid and fat stranding right submandib ular region. This extends inferiorly blurring fat planes inferior to hyoid bone up to level of vocal cords No well-formed fluid collection or abscess. No sialolith. Carotid/Vascular Structures: Mild calcified plaque left carotid bulb level redemonstrated. Osseous Structures: Levoconvex scoliosis centered in the mid cervical spine redemonstrated. Multileve l uncovertebral facet degenerative changes in cervical spine again seen. Other: The parapharyngeal fat spaces are maintained bilaterally. No definitive new greater than 1 cm neck lymph nodes. IMPRESSION: New mild/moderate ill-defined fluid and fat stranding right submandibular level extending inferiorly. No definitive new greater than 1 cm neck adenopathy. Suboptimal study with lack of IV co ntrast. Suspect infectious and/or inflammatory etiologies. Correlate clinically. No well-formed thick -walled fluid collection or drainable abscess clearly seen. Advise PET CT follow-up because of right apical lung findings which could also exclude local neoplastic recurrence better than noncontrast CT.
== END | disposition home or self-care (01) ==
LOC: RADCTMAIN 11:33
PROVIDERS: ATTEND Physician Assistant Medical
DX: M54.2 Cervicalgia (principal)
CPT/HCPCS: 70490

== ENCOUNTER 2020-10-03 09:47 | Inpatient (IN) | payer MEDICARE ==
[2020-10-03] MEDS ORDERED: SODIUM CHLORIDE 0.9% 1,000 ML IV STA (10:58)
[2020-10-03] MEDS ORDERED: MORPHINE SULFATE 4 MG/ML SYRINGE IV STA (10:58)
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
[2020-10-03 11:43] LABS: Basophils % (A) 0 %; Eosinophils % (A) 0 %; HCT 33.4 % (39.0-53.0); HGB 10.8 gm/dL (13.0-17.5); Lymphocytes # (A) 0.5 k/uL (1.0-4.8); Lymphocytes % (A) 4 %; MCHC 32.3 g/dL (31.0-37.0); MCV 83.6 fL (80.0-100.0); Mean Platelet Volume 7.1; Monocytes # (A) 0.5 k/uL (0-1.0); Monocytes % (A) 5 %; Neutrophils # (A) 9.1 k/uL (1.3-7.7); Neutrophils % (A) 89 %; Platelet Count 431 k/uL (150-450); RBC 3.99 m/uL (4.30-5.90); RDW 14.2 % (11.5-15.5); WBC 10.2 k/uL (3.8-10.6)
[2020-10-03 11:54] LABS: Partial Thromboplastin Time 24.2 sec (22.0-30.0)
[2020-10-03 12:00] LABS: ALT 37 U/L (4-49); AST 33 U/L (17-59); African American GFR (CKD) >90 (>60 ml/min/1.73 sqM); Alkaline Phosphatase 103 U/L (38-126); Anion Gap 7 mmol/L; Blood Urea Nitrogen 14 mg/dL (9-20); Calcium 9.7 mg/dL (8.4-10.2); Carbon Dioxide 27 mmol/L (22-30); Chloride 97 mmol/L (98-107); Glucose 124 mg/dL (74-99); Magnesium 2.2 mg/dL (1.6-2.3); Non-African American GFR(CKD) >90 (>60 ml/min/1.73 sqM); Potassium 4.3 mmol/L (3.5-5.1); Sodium 131 mmol/L (137-145); Total Bilirubin 0.4 mg/dL (0.2-1.3)
--- NOTE | 2020-10-03 13:18 | CT ---
EXAMINATION TYPE: CT neck chest w con DATE OF EXAM: 08/18/2020 COMPARISON: HISTORY: Neck mass with lymphadenopathy CT DLP: 411.8 mGycm CONTRAST: CT scan of the neck is performed with IV Contrast, patient injected with 100 mL of Isovue 300. Contrast enhanced CT of the neck was performed from the skull base through the lung apices. AIRWAY: The supraglottic, glottic, and subglottic portions of the airway appear patent and free of mass. SALIVARY GLANDS: The submandibular and parotid glands are free of mass or inflammatory process. THYROID GLAND: No nodules or masses seen. LYMPH NODES: Multiple enlarged lymph nodes identified within the right supraclavicular region measuri ng up to 1.3 cm. There is also increased soft tissue within the region of the internal jugular chain on the right which may reflect additional adenopathy or mass. LUNG APICES: No nodule or mass is seen. OTHER: There is hypoattenuation noted within the right internal jugular vein compatible with thrombos is. There is masslike enlargement or edema of the right sternocleidomastoid musculature. Degenerative changes of the cervical spine. No abscess seen. IMPRESSION: 1. Multiple enlarged lymph nodes right supraclavicular region and right internal jugular chain. 2. Thrombosed right internal jugular vein. 3. Masslike enlargement and/or edema of the right sternocleidomastoid musculature. Underlying mass is difficult to exclude. EXAMINATION TYPE: CT neck chest w con DATE OF EXAM: 10/03/2020 COMPARISON: 12/16/2017 HISTORY: Neck mass with lymphadenopathy CT DLP: 411.8 mGycm Automated exposure control for dose reduction was used. CONTRAST: CT scan of the chest is performed with IV Contrast, patient injected with 100 mL of Isovue 300. FINDINGS: LUNGS: Moderate emphysematous changes. Right apical scarring redemonstrated. [id number] right- sided pleural effusion with underlying compressive atelectasis or infiltrate. No distinct nodule or m ass. MEDIASTINUM: Thrombosed right internal jugular vein. Small pericardial effusion measuring 8.5 mm. Med iastinal adenopathy measuring 2.7 cm in the region of the AP window. Subcarinal adenopathy measuring 1.5 cm. Right hilar adenopathy measuring 2.5 cm. Left hilar adenopathy measuring 1.6 cm. Thoracic aor ta is of normal caliber. The heart is not enlarged. UPPER ABDOMEN: The gallbladder surgically absent. OTHER: No additional significant abnormality is seen. IMPRESSION: 1. Hilar and mediastinal adenopathy. 2. Thrombosed right internal jugular vein. 3. Small to moderate right-sided pleural effusion with underlying compressive atelectasis or infiltra te right lower lobe.
[2020-10-03 13:29] LABS: Appearance,Urine Clear (Clear); Bilirubin,Urine Negative (Negative); Blood,Urine Negative (Negative); Color,Urine Yellow; Glucose,Urine (UA) Negative (Negative); Ketones,Urine Negative (Negative); Leukocyte Esterase,Urine Negative (Negative); Nitrite,Urine Negative (Negative); PH, Urine 6.5 (5.0-8.0); Protein,Urine Negative (Negative); Specific Gravity,Urine 1.009 (1.001-1.035); Urobilinogen,Urine <2.0 mg/dL (<2.0)
[2020-10-03] MEDS ORDERED: ACETAMINOPHEN TAB 325 MG TAB PO PRN (14:44)
[2020-10-03] MEDS ORDERED: HYDROmorphone 1 MG/ML 1 ML SYRINGE IVP PRN (14:44)
[2020-10-03] MEDS ORDERED: NALOXONE 0.4 MG/ML 1 ML VIAL IV PRN (14:44)
--- NOTE | 2020-10-03 17:13 | CT ---
EXAMINATION TYPE: CT brain wo con DATE OF EXAM: 10/03/2020 COMPARISON: None HISTORY: headache CT DLP: 1074.4 mGycm Automated exposure control for dose reduction was used. There is cerebral cortical atrophy. There is no mass effect nor midline shift. There is no sign of in tracranial hemorrhage. The calvarium is intact. Sella turcica appears normal. Skull base is intact. IMPRESSION: Cerebral atrophy. No acute intracranial abnormality.
[2020-10-03] MEDS ORDERED: HEPARIN SODIUM 1,000 UN/ML (10ML VL) IV PRN ×2 (17:30→17:47)
[2020-10-03] MEDS ORDERED: HEPARIN SODIUM 1,000 UN/ML (10ML VL) IV ONE ×2 (17:30→17:47)
[2020-10-03] MEDS ORDERED: HEPARIN SOD,PORK IN 0.45% NACL 25,000 UNIT in 0.45% NACL 1 250ML.BAG IV SCH (17:30)
[2020-10-03] MEDS: SODIUM CHLORIDE 0.9% 1,000 ML IV SCH (17:35)
[2020-10-03] MEDS: HEPARIN SOD,PORK IN 0.45% NACL 25,000 UNIT in 0.45% NACL 1 250ML.BAG IV SCH (18:20)
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
[2020-10-04] MEDS: MORPHINE SULFATE 4 MG/ML SYRINGE IVP PRN ×2 (00:19→09:29)
[2020-10-04] MEDS: SODIUM CHLORIDE 0.9% 1,000 ML IV SCH ×2 (07:04→17:14)
[2020-10-04] MEDS: FAMOTIDINE 20 MG/2 ML VIAL IV SCH ×2 (07:06→22:04)
[2020-10-04 07:54] LABS: Basophils % (A) 0 %; Eosinophils # (A) 0.1 k/uL (0-0.7); Eosinophils % (A) 1 %; HCT 32.5 % (39.0-53.0); HGB 10.3 gm/dL (13.0-17.5); Lymphocytes # (A) 0.4 k/uL (1.0-4.8); Lymphocytes % (A) 5 %; MCH 27.1 pg (25.0-35.0); MCHC 31.7 g/dL (31.0-37.0); MCV 85.4 fL (80.0-100.0); Mean Platelet Volume 7.1; Monocytes # (A) 0.5 k/uL (0-1.0); Monocytes % (A) 5 %; Neutrophils # (A) 8.4 k/uL (1.3-7.7); Neutrophils % (A) 88 %; Platelet Count 419 k/uL (150-450); RBC 3.81 m/uL (4.30-5.90); RDW 14.5 % (11.5-15.5); WBC 9.5 k/uL (3.8-10.6)
[2020-10-04 08:05] LABS: INR 1.2 (<1.2); Partial Thromboplastin Time 61.5 sec (22.0-30.0); Prothrombin Time 12.2 sec (9.0-12.0)
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
[2020-10-04] MEDS: HEPARIN SOD,PORK IN 0.45% NACL 25,000 UNIT in 0.45% NACL 1 250ML.BAG IV SCH (17:13)
[2020-10-04 18:53] LABS: African American GFR (CKD) 110.8 (60.0-200.0); Anion Gap 11.5 mmol/L (4.00-12.00); BUN/Creat Ratio 15.71 Ratio (12.00-20.00); Calcium 8.4 mg/dL (8.7-10.3); Carbon Dioxide 19.5 mmol/L (21.6-31.8); Magnesium 1.9 mg/dL (1.5-2.4); Non-African American GFR(CKD) 95.6 (60.0-200.0); Potassium 4.1 mmol/L (3.5-5.5)
--- NOTE | 2020-10-04 22:12 | P.PN ---
Subjective This is a pleasant 70 years old male with past medical history of tongue cancer in 2017 is status post chemo and radiotherapy. He is currently follow-up with Dr. casas, last see him about one month ago and everything looked fine regarding this. Also history of COPD. Presents because as he describes as right shoulder pain for the last 60 days without history of trauma. States that pain was 10/10 on admission, nonspecific at times gets sharp, the pain located on the top of the shoulder close to the neck base and radiating around to the front of the neck and upwards Also complaining of from headache for the last 60 days with no weakness or numbness or blurred vision. No chest pain or dyspnea. No coughing. No abdominal pain or nausea vomiting or diarrhea. No urinary complaints. No fever. He smokes about 2 packs per day quit about one month ago. He used to drink alcohol daily and stopped in 2017 after he was diagnosed with tongue cancer. Denies illicit drugs also patient reports loss of weight over the last few weeks Vital signs stable and patient is afebrile. CBC is unremarkable except for mild anemia with hemoglobin 10.8. INR 1.0. Sodium 131. Glucose is slightly elevated at 124, rest of BMP and liver enzymes are unremarkable. Analysis is negative for infection CT of the chest showing hilar and mediastinal adenopathy. thrombosed right internal jugular vein. Small to moderate right-sided pleural effusion with underlying compressive atelectasis or infiltrate over the right lower lobe CT of the brain: No acute process I discussed the case with hematology team, Sharon or recommended to start the patient on anticoagulation. We'll check CT of the brain showing no hemorrhage. Risks and benefits of heparin drip is explained to the patient including but not limited to the bleeding into the brain and he verbalized understanding and acceptance to start blood thinner Objective - Vital Signs Vital signs: Vital Signs Temp 97.9 F 10/04/20 08:00 Pulse 78 10/04/20 08:00 Resp 16 10/04/20 08:00 BP 114/63 10/04/20 08:00 Pulse Ox 95 10/04/20 08:00 Intake & Output 10/03/20 10/04/20 10/04/20 18:59 06:59 18:59 Intake Total 71.199 150 Balance 71.199 150 Weight 54.431 kg 54.431 kg Intake: IV 150 Sodium Chloride 0.9% 1, 150 000 ml @ 75 mls/hr IV . [id number] [facility] Rx#:[id number] Intake, IV Titration 71.199 Amount Heparin Sod,Pork in 0.45% 71.199 NaCl 25,000 unit In 0.45 % NaCl 1 250ml.bag @ 18 UNITS/KG/HR 9.798 mls/hr IV .Q24H [facility] Rx#: [id number] - Exam GENERAL: The patient is alert and oriented x3, not in any acute distress. Well developed, well nourished. HEENT: Pupils are round and equally reacting to light. EOMI. No scleral icterus. No conjunctival pallor. Normocephalic, atraumatic. No pharyngeal erythema. No thyromegaly. --Right supraclavicular fullness and induration suspicious for a mass with tenderness and redness from thrombosed veins CARDIOVASCULAR: S1 and S2 present. No murmurs, rubs, or gallops. PULMONARY: Chest is clear to auscultation, no wheezing or crackles. ABDOMEN: Soft, nontender, nondistended, normoactive bowel sounds. No palpable organomegaly. MUSCULOSKELETAL: No joint swelling or deformity. EXTREMITIES: No cyanosis, clubbing, or pedal edema. NEUROLOGICAL: Gross neurological examination did not reveal any focal deficits. SKIN: No rashes. no petechiae. - Labs CBC & Chem 7: 10/04/20 07:29 10/04/20 07:29 Labs: Abnormal Lab Results - Last 24 Hours (Table) 10/03/20 10/04/20 10/04/20 Range/Units 23:49 07:29 07:29 RBC 3.81 L (4.30-5.90) m/uL Hgb 10.3 L (13.0-17.5) gm/dL Hct 32.5 L (39.0-53.0) % Neutrophils # 8.4 H (1.3-7.7) k/uL Lymphocytes # 0.4 L (1.0-4.8) k/uL PT 12.2 H (9.0-12.0) sec INR 1.2 H (<1.2) APTT 34.0 H 61.5 H (22.0-30.0) sec Assessment and Plan Assessment: acute right internal jugular venous thrombosis Possible right neck mass Right-sided pleural effusion with possible underlying atelectasis, rather than pneumonia History of tongue cancer in 2017 status post chemoradiotherapy Nicotine dependence Plan: This is a pleasant 70 years old male who presents with right internal jugular vein thrombosis and hilar and mediastinal lymphadenopathy. Possible right neck mass Start heparin drip per protocol, switched oral anticoagulation after procedure Oncology consult IR for right neck mass biopsy ENT team were consulted as well Labs and medication were reviewed.. Continue same treatment. Continue with symptomatic treatment. Resume home medication. Monitor lytes and vitals. DVT and GI prophylaxis. Further recommendations as per clinical course of the patient DVT prophylaxis: heparin GI Prophylaxis: Pepcid PT/OT: Pending Prognosis is guarded
[2020-10-04] MEDS ORDERED: MORPHINE SULFATE 4 MG/ML SYRINGE ONE (23:00)
[2020-10-05] MEDS: FAMOTIDINE 20 MG/2 ML VIAL IV SCH ×2 (09:15→19:58)
[2020-10-05] MEDS: SODIUM CHLORIDE 0.9% 1,000 ML IV SCH ×2 (09:17→17:56)
[2020-10-05] MEDS ORDERED: ALBUTEROL HFA INHALER INHALATION PRN (11:47)
[2020-10-05] MEDS: MORPHINE SULFATE 4 MG/ML SYRINGE IVP PRN ×2 (11:53→18:59)
--- NOTE | 2020-10-05 14:14 | US ---
ULTRASOUND GUIDED CORE BIOPSY RIGHT NECK LYMPHADENOPATHY: CLINICAL HISTORY: Request for core biopsy right neck lymphadenopathy FINDINGS: The procedure was explained to the patient. The risks, complications, benefits and alternatives were discussed and any questions were answered. Informed consent was obtained. Patient was placed supin e on the ultrasound table and prepped and draped in the usual sterile fashion. Utilizing a 18 gauge needle, 2 passes were made into the right neck lymphadenopathy. Patient was stable throughout the procedure. Pathology is pending. All elements of maximal barrier technique were utilized. IMPRESSION: 1. Successful ultrasound guided core biopsy right neck lymphadenopathy.
--- NOTE | 2020-10-05 17:47 | P.PN ---
Subjective This is a pleasant 70 years old male with past medical history of tongue cancer in 2017 is status post chemo and radiotherapy. He is currently follow-up with Dr. casas, last see him about one month ago and everything looked fine regarding this. Also history of COPD. Presents because as he describes as right shoulder pain for the last 60 days without history of trauma. States that pain was 10/10 on admission, nonspecific at times gets sharp, the pain located on the top of the shoulder close to the neck base and radiating around to the front of the neck and upwards Also complaining of from headache for the last 60 days with no weakness or numbness or blurred vision. No chest pain or dyspnea. No coughing. No abdominal pain or nausea vomiting or diarrhea. No urinary complaints. No fever. He smokes about 2 packs per day quit about one month ago. He used to drink alcohol daily and stopped in 2017 after he was diagnosed with tongue cancer. Denies illicit drugs also patient reports loss of weight over the last few weeks Vital signs stable and patient is afebrile. CBC is unremarkable except for mild anemia with hemoglobin 10.8. INR 1.0. Sodium 131. Glucose is slightly elevated at 124, rest of BMP and liver enzymes are unremarkable. Analysis is negative for infection CT of the chest showing hilar and mediastinal adenopathy. thrombosed right internal jugular vein. Small to moderate right-sided pleural effusion with underlying compressive atelectasis or infiltrate over the right lower lobe CT of the brain: No acute process I discussed the case with hematology team, Sharon or recommended to start the patient on anticoagulation. We'll check CT of the brain showing no hemorrhage. Risks and benefits of heparin drip is explained to the patient including but not limited to the bleeding into the brain and he verbalized understanding and acceptance to start blood thinner 10/05/2020 Patient feels the same. Other than that he is hemodynamically is stable. Labs look stable and hemoglobin is stable as well He underwent lymph node biopsy of the neck today with results pending After the procedure heparin drip was stopped and started on Eliquis for his right IJ thrombosis Oncology team on the case ENT team were consulted Objective - Vital Signs Vital signs: Vital Signs Temp 97.4 F L 10/05/20 12:00 Pulse 76 10/05/20 14:15 Resp 18 10/05/20 12:00 BP 112/69 10/05/20 14:15 Pulse Ox 94 L 10/05/20 12:00 Intake & Output 10/04/20 10/05/20 10/05/20 18:59 06:59 18:59 Intake Total 203.253 5810 1065.654 Balance 083.936 5823 1065.654 Intake: IV 750 Sodium Chloride 0.9% 1, 750 000 ml @ 75 mls/hr IV . [id number] [facility] Rx#:[id number] Intake, IV Titration 178.392 461 7798.654 Amount Heparin Sod,Pork in 0.45% 178.801 165.654 NaCl 25,000 unit In 0.45 % NaCl 1 250ml.bag @ 18 UNITS/KG/HR 9.798 mls/hr IV .Q24H [facility] Rx#: [id number] Sodium Chloride 0.9% 1, 825 900 000 ml @ 75 mls/hr IV . [id number] [facility] Rx#:[id number] Oral 240 Other: # Voids 2 - Exam GENERAL: The patient is alert and oriented x3, not in any acute distress. Well developed, well nourished. HEENT: Pupils are round and equally reacting to light. EOMI. No scleral icterus. No conjunctival pallor. Normocephalic, atraumatic. No pharyngeal erythema. No thyromegaly. --Right supraclavicular fullness and induration suspicious for a mass with tenderness and redness from thrombosed veins CARDIOVASCULAR: S1 and S2 present. No murmurs, rubs, or gallops. PULMONARY: Chest is clear to auscultation, no wheezing or crackles. ABDOMEN: Soft, nontender, nondistended, normoactive bowel sounds. No palpable organomegaly. MUSCULOSKELETAL: No joint swelling or deformity. EXTREMITIES: No cyanosis, clubbing, or pedal edema. NEUROLOGICAL: Gross neurological examination did not reveal any focal deficits. SKIN: No rashes. no petechiae. - Labs CBC & Chem 7: 10/04/20 07:29 10/04/20 07:29 Labs: Abnormal Lab Results - Last 24 Hours (Table) 10/04/20 10/05/20 Range/Units 07:29 04:26 APTT 43.8 H (22.0-30.0) sec Sodium 134 L (135-145) mmol/L Carbon Dioxide 19.5 L (21.6-31.8) mmol/L Glucose 152 H (70-110) mg/dL Calcium 8.4 L (8.7-10.3) mg/dL Assessment and Plan Assessment: acute right internal jugular venous thrombosis Hilar and mediastinal lymphadenopathy, status post right neck lymph node biopsy Right-sided pleural effusion with possible underlying atelectasis, rather than pneumonia History of tongue cancer in 2017 status post chemoradiotherapy Nicotine dependence Plan: This is a pleasant 70 years old male who presents with right internal jugular vein thrombosis and hilar and mediastinal lymphadenopathy. Start the patient on Eliquis. Heparin drip Follow-up lymph node biopsy Oncology consult R following the patient closely ENT team were consulted as well Labs and medication were reviewed.. Continue same treatment. Continue with symptomatic treatment. Resume home medication. Monitor lytes and vitals. DVT and GI prophylaxis. Further recommendations as per clinical course of the patient DVT prophylaxis: Eliquis GI Prophylaxis: Pepcid PT/OT: Home Prognosis is guarded
[2020-10-05] MEDS: APIXABAN 5 MG TAB PO SCH (19:58)
[2020-10-05] MEDS: IPRATROPIUM 0.5 MG/2.5 ML NEBU INHALATION SCH (20:20)
[2020-10-06] MEDS: MORPHINE SULFATE 4 MG/ML SYRINGE IVP PRN ×2 (03:57→09:51)
[2020-10-06] MEDS: IPRATROPIUM 0.5 MG/2.5 ML NEBU INHALATION SCH ×2 (07:48→20:02)
[2020-10-06] MEDS: FAMOTIDINE 20 MG/2 ML VIAL IV SCH (08:12)
[2020-10-06] MEDS: APIXABAN 5 MG TAB PO SCH ×2 (08:12→20:04)
--- NOTE | 2020-10-06 17:40 | P.PN ---
Subjective Progress Note Date: 10/06/20 Principal diagnosis: neck mass, history of carcinoma of the tongue In follow-up today patient seems to be doing okay, he states he is tolerating oral intake, no coughing after taking in foods or fluids, denies painful swallowing at this time, breathing is stable, he is ambulatory, denies any acute changes in his bowel habits, no reports of pain Objective - Vital Signs Vital signs: Vital Signs Temp 97.5 F L 10/06/20 12:31 Pulse 91 10/06/20 12:31 Resp 18 10/06/20 12:31 BP 106/67 10/06/20 12:31 Pulse Ox 96 10/06/20 12:31 Intake & Output 10/05/20 10/06/20 10/06/20 18:59 06:59 18:59 Intake Total 9424.219 4387 240 Balance 3289.145 7593 240 Intake: Intake, IV Titration 1065.654 600 Amount Heparin Sod,Pork in 0.45% 165.654 NaCl 25,000 unit In 0.45 % NaCl 1 250ml.bag @ 18 UNITS/KG/HR 9.798 mls/hr IV .Q24H [facility] Rx#: [id number] Sodium Chloride 0.9% 1, 900 600 000 ml @ 50 mls/hr IV . Q20H [facility] Rx#:[id number] Oral 580 240 Other: # Voids 2 - Constitutional General appearance: Present: average body habitus, cooperative, no acute di stress - EENT Eyes: Present: anicteric sclerae, EOMI ENT: Present: hearing grossly normal - Neck Neck: Present: lymphadenopathy - Respiratory Details: respirations even and unlabored at rest - Neurologic Neurologic Comment(s): cranial nerves grossly intact - Musculoskeletal Musculoskeletal: Present: strength equal bilaterally - Psychiatric Psychiatric: Present: A&O x's 3, appropriate affect, intact judgment & insight - Labs CBC & Chem 7: 10/04/20 07:29 10/04/20 07:29 Assessment and Plan (1) Mass in neck Narrative/Plan: Status post core biopsy of right supraclavicular node/mass, path pending PET scan for staging scheduled, appointment in discharge summary. Follow-up appointment with Dr. Mckeon documented in discharge summary It was discussed with patient day of consult that this was suspicious for recurrence of cancer but, we will await path results Current Visit: Yes Status: Acute Priority: High Code(s): R22.1 - LOCALIZED SWELLING, MASS AND LUMP, NECK SNOMED Code(s): 603214353 (2) Internal jugular vein thrombosis Narrative/Plan: Eliquis prescription sent to [facility] pharmacy, communication order sent to Case Management for co-pay verification. Would like to at least have confirmation that there is enough specimen for pathology to make a diagnosis before discontinuing heparin drip and starting on oral anticoagulation. Current Visit: Yes Status: Acute Priority: High Code(s): I82.C19 - ACUTE EMBOLISM AND THROMBOSIS OF UNSP INTERNAL JUGULAR VEIN SNOMED Code(s): 298621759
[2020-10-06] MEDS: SODIUM CHLORIDE 0.9% 1,000 ML IV SCH (17:57)
--- NOTE | 2020-10-06 20:01 | P.PN ---
Subjective This is a pleasant 70 years old male with past medical history of tongue cancer in 2017 is status post chemo and radiotherapy. He is currently follow-up with Dr. casas, last see him about one month ago and everything looked fine regarding this. Also history of COPD. Presents because as he describes as right shoulder pain for the last 60 days without history of trauma. States that pain was 10/10 on admission, nonspecific at times gets sharp, the pain located on the top of the shoulder close to the neck base and radiating around to the front of the neck and upwards Also complaining of from headache for the last 60 days with no weakness or numbness or blurred vision. No chest pain or dyspnea. No coughing. No abdominal pain or nausea vomiting or diarrhea. No urinary complaints. No fever. He smokes about 2 packs per day quit about one month ago. He used to drink alcohol daily and stopped in 2017 after he was diagnosed with tongue cancer. Denies illicit drugs also patient reports loss of weight over the last few weeks Vital signs stable and patient is afebrile. CBC is unremarkable except for mild anemia with hemoglobin 10.8. INR 1.0. Sodium 131. Glucose is slightly elevated at 124, rest of BMP and liver enzymes are unremarkable. Analysis is negative for infection CT of the chest showing hilar and mediastinal adenopathy. thrombosed right internal jugular vein. Small to moderate right-sided pleural effusion with underlying compressive atelectasis or infiltrate over the right lower lobe CT of the brain: No acute process I discussed the case with hematology team, Sharon or recommended to start the patient on anticoagulation. We'll check CT of the brain showing no hemorrhage. Risks and benefits of heparin drip is explained to the patient including but not limited to the bleeding into the brain and he verbalized understanding and acceptance to start blood thinner 10/05/2020 Patient feels the same. Other than that he is hemodynamically is stable. Labs look stable and hemoglobin is stable as well He underwent lymph node biopsy of the neck today with results pending After the procedure heparin drip was stopped and started on Eliquis for his right IJ thrombosis Oncology team on the case ENT team were consulted 10/06/2020 Patients with some improvement. His line in bed most of the time and he got little exertion with movement. Patient hemodynamically stable. No labs from today. He is eating well. And his heparin drip was switched to Eliquis 10 mg twice a day with case resolution specialist recommendation Lymph node biopsy is pending Patient needs a PET scan and scheduled appointment with Dr. Mckeon upon discharge on 10/19 Objective - Vital Signs Vital signs: Vital Signs Temp 98.2 F 10/06/20 19:48 Pulse 110 H 10/06/20 19:48 Resp 16 10/06/20 19:48 BP 139/73 10/06/20 19:48 Pulse Ox 95 10/06/20 19:48 Intake & Output 10/06/20 10/06/20 10/07/20 06:59 18:59 06:59 Intake Total 1180 820 Balance 1180 820 Intake: Intake, IV Titration 600 Amount Sodium Chloride 0.9% 1, 600 000 ml @ 50 mls/hr IV . Q20H [facility] Rx#:[id number] Oral 580 820 Other: # Voids 2 2 - Exam GENERAL: The patient is alert and oriented x3, not in any acute distress. Well developed, well nourished. HEENT: Pupils are round and equally reacting to light. EOMI. No scleral icterus. No conjunctival pallor. Normocephalic, atraumatic. No pharyngeal erythema. No thyromegaly. --Right supraclavicular fullness and induration suspicious for a mass with tenderness and redness from thrombosed veins CARDIOVASCULAR: S1 and S2 present. No murmurs, rubs, or gallops. PULMONARY: Chest is clear to auscultation, no wheezing or crackles. ABDOMEN: Soft, nontender, nondistended, normoactive bowel sounds. No palpable organomegaly. MUSCULOSKELETAL: No joint swelling or deformity. EXTREMITIES: No cyanosis, clubbing, or pedal edema. NEUROLOGICAL: Gross neurological examination did not reveal any focal deficits. SKIN: No rashes. no petechiae. - Labs CBC & Chem 7: 10/04/20 07:29 10/04/20 07:29 Assessment and Plan Assessment: acute right internal jugular venous thrombosis Hilar and mediastinal lymphadenopathy, status post right neck lymph node biopsy Right-sided pleural effusion with possible underlying atelectasis, rather than pneumonia History of tongue cancer in 2017 status post chemoradiotherapy Nicotine dependence Plan: This is a pleasant 70 years old male who presents with right internal jugular vein thrombosis and hilar and mediastinal lymphadenopathy. Start the patient on Eliquis. Follow-up lymph node biopsy Oncology consult R following the patient closely Follow-up with oncology service upon discharge with Dr. Mckeon Team Labs and medication were reviewed.. Continue same treatment. Continue with symptomatic treatment. Resume home medication. Monitor lytes and vitals. DVT and GI prophylaxis. Further recommendations as per clinical course of the patient DVT prophylaxis: Eliquis GI Prophylaxis: Pepcid PT/OT: Home Prognosis is guarded
[2020-10-06] MEDS: FAMOTIDINE 20 MG TAB PO SCH (20:04)
[2020-10-07 06:17] LABS: Basophils % (A) 0 %; Eosinophils % (A) 0 %; HCT 28.5 % (39.0-53.0); HGB 9.5 gm/dL (13.0-17.5); Lymphocytes # (A) 0.4 k/uL (1.0-4.8); Lymphocytes % (A) 3 %; MCH 27.5 pg (25.0-35.0); MCHC 33.5 g/dL (31.0-37.0); MCV 82.1 fL (80.0-100.0); Mean Platelet Volume 6.4; Monocytes # (A) 0.4 k/uL (0-1.0); Monocytes % (A) 4 %; Neutrophils # (A) 10.5 k/uL (1.3-7.7); Neutrophils % (A) 93 %; Platelet Count 407 k/uL (150-450); RBC 3.47 m/uL (4.30-5.90); RDW 14.8 % (11.5-15.5); WBC 11.4 k/uL (3.8-10.6)
--- NOTE | 2020-10-07 07:21 | XR ---
EXAMINATION TYPE: XR chest 1V DATE OF EXAM: 10/07/2020 HISTORY: Shortness of breath. COMPARISON: 04/23/2013 TECHNIQUE: Single view of the chest is submitted. FINDINGS: Demonstrated are scattered senescent parenchymal change. Prominent interstitial markings perihilar and upper lobe regions are not specific and could reflect a typical pneumonia. Correlate clinically. The heart is stable. Hilar and mediastinal structures are within normal limits. Degenerative changes are seen of the dorsal spine. IMPRESSION: 1. Prominent interstitial markings perihilar and upper lobe regions are not specific and could refle ct atypical pneumonia. Correlate clinically.
[2020-10-07] MEDS: IPRATROPIUM 0.5 MG/2.5 ML NEBU INHALATION SCH ×2 (08:14→19:07)
[2020-10-07] MEDS: APIXABAN 5 MG TAB PO SCH ×2 (09:09→21:54)
[2020-10-07] MEDS: FAMOTIDINE 20 MG TAB PO SCH ×2 (09:09→21:54)
[2020-10-07] MEDS ORDERED: FUROSEMIDE 10 MG/ML 4 ML VIAL IV STA (09:20)
[2020-10-07 10:14] LABS: Albumin 2.9 g/dL (3.5-5.0); Bilirubin,Unconjugated 0.5 mg/dL (0.0-1.1); Globulin 2.8 g/dL; Total Bilirubin 0.6 mg/dL (0.2-1.3); Total Protein 5.7 g/dL (6.3-8.2)
--- NOTE | 2020-10-07 10:45 | CT ---
EXAMINATION TYPE: CT brain wo con DATE OF EXAM: 10/07/2020 COMPARISON: 10/03/2020 HISTORY: Confusion CT DLP: [address] of the brain was performed. The ventricles, basal cisterns and sulci overlying the cerebral convexities demonstrate mild enlargem ent. There is no evidence for intracranial hemorrhage or sulcal effacement. There is decreased attenuation about the periventricular white matter and deep white matter of both c erebral hemispheres, compatible with chronic small vessel ischemia. Differential diagnosis does inclu de demyelination. No mass effects are seen.No midline shift. Osseous calvarium is intact. Mucous retention cyst right maxillary sinus. If symptoms persist consider MRI. IMPRESSION: 1. Age related atrophic and chronic small vessel ischemic change without acute intracranial process s een at this time.
[2020-10-07 13:24] LABS: African American GFR (CKD) 118.1 (60.0-200.0); Anion Gap 8.5 mmol/L (4.00-12.00); BUN/Creat Ratio 18.33 Ratio (12.00-20.00); Calcium 8.9 mg/dL (8.7-10.3); Carbon Dioxide 23.5 mmol/L (21.6-31.8); Non-African American GFR(CKD) 101.9 (60.0-200.0); Potassium 3.6 mmol/L (3.5-5.5)
[2020-10-07 15:31] LABS: African American GFR (CKD) >90 (>60 ml/min/1.73 sqM); Anion Gap 8 mmol/L; Blood Urea Nitrogen 11 mg/dL (9-20); Calcium 9.3 mg/dL (8.4-10.2); Carbon Dioxide 23 mmol/L (22-30); Chloride 94 mmol/L (98-107); Glucose 110 mg/dL (74-99); Non-African American GFR(CKD) >90 (>60 ml/min/1.73 sqM); Potassium 3.4 mmol/L (3.5-5.1); Sodium 125 mmol/L (137-145)
[2020-10-07 16:03] LABS: Appearance,Urine Clear (Clear); Bilirubin,Urine Negative (Negative); Blood,Urine Negative (Negative); Color,Urine Light Yellow; Glucose,Urine (UA) Negative (Negative); Ketones,Urine Negative (Negative); Leukocyte Esterase,Urine Negative (Negative); Nitrite,Urine Negative (Negative); Protein,Urine Negative (Negative); Specific Gravity,Urine 1.005 (1.001-1.035); Urobilinogen,Urine <2.0 mg/dL (<2.0)
[2020-10-07] MEDS ORDERED: Potassium Replacement Protocol 1 EACH MISC MISCELLANE PRN (17:25)
[2020-10-07] MEDS: POTASSIUM CHLORIDE ER 20 MEQ TAB.ER PO SCH ×2 (18:25→21:53)
--- NOTE | 2020-10-07 19:32 | P.PN ---
Subjective Progress Note Date: 10/07/20 Principal diagnosis: Recurrent Squamous Cell Carcinoma Reviewed pathology results with patient and plan for outpatient PET scan NA: 127, discharge was held. Patient is awake and alert Dr. Alston at bedside during visit Objective - Vital Signs Vital signs: Vital Signs Temp 98.1 F 10/07/20 14:07 Pulse 91 10/07/20 14:07 Resp 17 10/07/20 14:07 BP 120/68 10/07/20 14:07 Pulse Ox 96 10/07/20 14:07 Intake & Output 10/06/20 10/07/20 10/07/20 18:59 06:59 18:59 Intake Total 820 480 Balance 820 480 Intake: Oral 820 480 Other: # Voids 2 4 # Bowel Movements 1 - Exam - Constitutional General appearance: Present: average body habitus, cooperative, no acute distress - EENT Eyes: Present: anicteric sclerae, EOMI ENT: Present: hearing grossly normal - Neck Neck: Present: lymphadenopathy - Respiratory Details: respirations even and unlabored at rest - Neurologic Neurologic Comment(s): cranial nerves grossly intact - Musculoskeletal Musculoskeletal: Present: strength equal bilaterally - Psychiatric Psychiatric: Present: A&O x's 3, appropriate affect, intact judgment & insight - Labs CBC & Chem 7: 10/07/20 05:43 10/07/20 15:00 Labs: Abnormal Lab Results - Last 24 Hours (Table) 10/07/20 10/07/20 10/07/20 Range/Units 05:43 05:43 09:32 WBC 11.4 H (3.8-10.6) k/uL RBC 3.47 L (4.30-5.90) m/uL Hgb 9.5 L (13.0-17.5) gm/dL Hct 28.5 L (39.0-53.0) % Neutrophils # 10.5 H (1.3-7.7) k/uL Lymphocytes # 0.4 L (1.0-4.8) k/uL Sodium 127 L (135-145) mmol/L Chloride 95 L (96-109) mmol/L Total Protein 5.7 L (6.3-8.2) g/dL Albumin 2.9 L (3.5-5.0) g/dL Assessment and Plan Plan: Assessment and Plan (1) Mass in neck Narrative/Plan: Status post core biopsy of right supraclavicular node/mass, path positive for p40 squamous cell carcinoma PET scan for staging scheduled, appointment in discharge summary. Follow-up appointment with Dr. Mckeon documented in discharge summary Reviewed path with patient and plan Current Visit: Yes Status: Acute Priority: High Code(s): R22.1 - LOCALIZED SWELLING, MASS AND LUMP, NECK SNOMED Code(s): 349269148 (2) Internal jugular vein thrombosis Narrative/Plan: Eliquis prescription sent to [facility] pharmacy, communication order sent to Case Management for co-pay verification. Current Visit: Yes Status: Acute Priority: High Code(s): I82.C19 - ACUTE EMBOLISM AND THROMBOSIS OF UNSP INTERNAL JUGULAR VEIN SNOMED Code(s): 279545236 Physician Attest: I have completed the full history and physical and agree with above dictation, dictated as a ascribe
[2020-10-07 21:31] LABS: Potassium 3.3 mmol/L (3.5-5.1)
[2020-10-07] MEDS: AMOXIC-POT CLAV 875-125MG 1 EACH TAB PO SCH (21:53)
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
--- NOTE | 2020-10-07 23:39 | P.PN ---
Subjective This is a pleasant 70 years old male with past medical history of tongue cancer in 2017 is status post chemo and radiotherapy. He is currently follow-up with Dr. casas, last see him about one month ago and everything looked fine regarding this. Also history of COPD. Presents because as he describes as right shoulder pain for the last 60 days without history of trauma. States that pain was 10/10 on admission, nonspecific at times gets sharp, the pain located on the top of the shoulder close to the neck base and radiating around to the front of the neck and upwards Also complaining of from headache for the last 60 days with no weakness or numbness or blurred vision. No chest pain or dyspnea. No coughing. No abdominal pain or nausea vomiting or diarrhea. No urinary complaints. No fever. He smokes about 2 packs per day quit about one month ago. He used to drink alcohol daily and stopped in 2017 after he was diagnosed with tongue cancer. Denies illicit drugs also patient reports loss of weight over the last few weeks Vital signs stable and patient is afebrile. CBC is unremarkable except for mild anemia with hemoglobin 10.8. INR 1.0. Sodium 131. Glucose is slightly elevated at 124, rest of BMP and liver enzymes are unremarkable. Analysis is negative for infection CT of the chest showing hilar and mediastinal adenopathy. thrombosed right internal jugular vein. Small to moderate right-sided pleural effusion with underlying compressive atelectasis or infiltrate over the right lower lobe CT of the brain: No acute process I discussed the case with hematology team, Sharon or recommended to start the patient on anticoagulation. We'll check CT of the brain showing no hemorrhage. Risks and benefits of heparin drip is explained to the patient including but not limited to the bleeding into the brain and he verbalized understanding and acceptance to start blood thinner 10/05/2020 Patient feels the same. Other than that he is hemodynamically is stable. Labs look stable and hemoglobin is stable as well He underwent lymph node biopsy of the neck today with results pending After the procedure heparin drip was stopped and started on Eliquis for his right IJ thrombosis Oncology team on the case ENT team were consulted 10/06/2020 Patients with some improvement. His line in bed most of the time and he got little exertion with movement. Patient hemodynamically stable. No labs from today. He is eating well. And his heparin drip was switched to Eliquis 10 mg twice a day with enamel cracker recommendation Lymph node biopsy is pending Patient needs a PET scan and scheduled appointment with Dr. Mckeon upon discharge on 10/1910/07/2020 Patient today was more confused, continue his in the hospital at its is in [address] however he could not tell the date or person. He was also little bit disoriented to the surrounding. No headache or weakness or numbness. No slurred speech or blurred vision. Also he is to put the Especially with exertion but denies chest pain or coughing. He has swelling of both legs and right upper extremity. Vitals stable. Labs showing low sodium at 127 and then 125. Later on improved with treatment 127 again. procalcitonin improved with decreased from 0.09 operative 0.22. We ordered CT of the brain since patient is on blood thinner and it was negative. Ammonia level is negative. Normal saline was stopped and patient given 1 time dose of Lasix 40 mg. Patient was placed on fluid restriction and sodium monitor to closely. Sodium level improved later on up to 127. After around lymph node biopsy came back positive for moderately to poorly differentiated squamous cell carcinoma. Oncology team recommended close outpatient follow-up and possible PET scan For staging. Augmentin was added, infectious disease team input is appreciated. Sputum culture requested We will monitor the patient closely. Also placed the patient on new margin Review of systems: CONSTITUTIONAL: No fever, no malaise, no fatigue. HEENT: No recent visual problems or hearing problems. Denied any sore throat. CARDIOVASCULAR: No orthopnea, PND, no palpitations, no syncope. PULMONARY: No chest wall tenderness, no hemoptysis. GASTROINTESTINAL: No diarrhea, no nausea, no vomiting, no abdominal pain. Normoactive bowel sounds. NEUROLOGICAL: No headaches, no weakness, no numbness. Active Medications Generic Name Dose Route Start Last Admin Trade Name Freq PRN Reason Stop Dose Admin Acetaminophen 650 mg 10/03/20 14:44 10/07/20 11:08 Acetaminophen Tab 325 Mg Tab PO 650 mg Q6HR PRN Administration Mild Pain or Fever > 100.5 Albuterol Sulfate 2 puff 10/05/20 11:47 Albuterol Hfa Inhaler INHALATION RT-QID PRN Shortness Of Breath Amoxicillin/Clavulanate Potassium 1 each 10/07/20 21:15 10/07/20 21:53 Amoxic-Pot Clav 875-125mg 1 Each Tab PO 1 each Q12HR DANN Administration Apixaban 10 mg 10/06/20 21:00 10/07/20 21:54 Apixaban 5 Mg Tab PO 10/13/20 09:01 10 mg BID DANN Administration Protocol Famotidine 20 mg 10/06/20 21:00 10/07/20 21:54 Famotidine 20 Mg Tab PO 20 mg BID DANN Administration Hydromorphone HCl 1 mg 10/03/20 14:44 Hydromorphone 1 Mg/Ml 1 Ml Syringe IVP Q3HR PRN Severe Pain Ipratropium [place] 0.5 mg 10/05/20 20:00 10/07/20 19:07 Ipratropium 0.5 Mg/2.5 Ml Nebu INHALATION Not Given RT-BID [facility] Miscellaneous Information 1 each 10/07/20 17:25 Potassium Replacement Protocol 1 Each Misc MISCELLANE DAILY PRN Per Protocol Protocol Morphine Sulfate 4 mg 10/03/20 16:41 10/06/20 09:51 Morphine Sulfate 4 Mg/Ml Syringe IVP 4 mg Q4HR PRN Administration Pain Naloxone HCl 0.2 mg 10/03/20 14:44 Naloxone 0.4 Mg/Ml 1 Ml Vial IV Q2M PRN Opioid Reversal Objective - Vital Signs Vital signs: Vital Signs Temp 97.9 F 10/07/20 20:05 Pulse 91 10/07/20 20:05 Resp 16 10/07/20 20:05 BP 117/70 10/07/20 20:05 Pulse Ox 95 10/07/20 20:05 Intake & Output 10/07/20 10/07/20 10/08/20 06:59 18:59 06:59 Intake Total 480 580 Balance 480 580 Intake: Oral 480 580 Other: # Voids 4 2 # Bowel Movements 1 - Exam -GENERAL: The patient is alert and oriented x1, confused, not in any acute distress. Well developed, well nourished. HEENT: Pupils are round and equally reacting to light. EOMI. No scleral icterus. No conjunctival pallor. Normocephalic, atraumatic. No pharyngeal erythema. No thyromegaly. --Right supraclavicular fullness and induration suspicious for a mass with tenderness and redness from thrombosed veins CARDIOVASCULAR: S1 and S2 present. No murmurs, rubs, or gallops. -PULMONARY: Chest is clear to auscultation, no wheezing or crackles. Mild tachypnea ABDOMEN: Soft, nontender, nondistended, normoactive bowel sounds. No palpable organomegaly. MUSCULOSKELETAL: No joint swelling or deformity. EXTREMITIES: No cyanosis, clubbing, or pedal edema. NEUROLOGICAL: Gross neurological examination did not reveal any focal deficits. SKIN: No rashes. no petechiae. - Labs CBC & Chem 7: 10/07/20 05:43 10/07/20 21:12 Labs: Abnormal Lab Results - Last 24 Hours (Table) 10/07/20 10/07/20 10/07/20 Range/Units 05:43 05:43 09:27 WBC 11.4 H (3.8-10.6) k/uL RBC 3.47 L (4.30-5.90) m/uL Hgb 9.5 L (13.0-17.5) gm/dL Hct 28.5 L (39.0-53.0) % Neutrophils # 10.5 H (1.3-7.7) k/uL Lymphocytes # 0.4 L (1.0-4.8) k/uL Sodium 127 L (135-145) mmol/L Potassium (3.5-5.1) mmol/L Chloride 95 L (96-109) mmol/L Creatinine (0.66-1.25) mg/dL Glucose (74-99) mg/dL Total Protein (6.3-8.2) g/dL Albumin (3.5-5.0) g/dL Procalcitonin 0.22 H (0.02-0.09) ng/mL 10/07/20 10/07/20 10/07/20 Range/Units 09:32 15:00 21:12 WBC (3.8-10.6) k/uL RBC (4.30-5.90) m/uL Hgb (13.0-17.5) gm/dL Hct (39.0-53.0) % Neutrophils # (1.3-7.7) k/uL Lymphocytes # (1.0-4.8) k/uL Sodium 125 L 127 L (135-145) mmol/L Potassium 3.4 L 3.3 L (3.5-5.1) mmol/L Chloride 94 L 96 L (96-109) mmol/L Creatinine 0.59 L (0.66-1.25) mg/dL Glucose 110 H (74-99) mg/dL Total Protein 5.7 L (6.3-8.2) g/dL Albumin 2.9 L (3.5-5.0) g/dL Procalcitonin (0.02-0.09) ng/mL Assessment and Plan Assessment: acute right internal jugular venous thrombosis Hilar and mediastinal lymphadenopathy, status post right neck lymph node biopsy. Biopsy showing metastatic moderately to poorly differentiated squamous cell cancer Possible pneumonia Hyponatremia, hypervolemic History of tongue cancer in 2017 status post chemoradiotherapy Nicotine dependence Plan: This is a pleasant 70 years old male who presents with right internal jugular vein thrombosis and hilar and mediastinal lymphadenopathy. Start the patient on Eliquis. Find co-pay Follow-up with oncology team as an outpatient for his squamous cell cancer on. Oncology team are following the patient closely Discontinue IV fluids, Lasix as needed. Fluid restriction. Monitor sodium closely Continue with the neuro check Start Augmentin for pneumonia. Follow-up with infectious disease recommendation Labs and medication were reviewed.. Continue same treatment. Continue with symptomatic treatment. Resume home medication. Monitor lytes and vitals. DVT and GI prophylaxis. Further recommendations as per clinical course of the p atient DVT prophylaxis: Eliquis GI Prophylaxis: Pepcid PT/OT: Home Prognosis is guarded
[2020-10-08 06:05] VITALS: BP 114/69; PULSE 94; RESP 20; TEMP 98.1
[2020-10-08 06:54] LABS: Magnesium 1.9 mg/dL (1.6-2.3); Potassium 3.8 mmol/L (3.5-5.1)
[2020-10-08] MEDS: FAMOTIDINE 20 MG TAB PO SCH (07:31)
[2020-10-08] MEDS: AMOXIC-POT CLAV 875-125MG 1 EACH TAB PO SCH (07:31)
[2020-10-08] MEDS: IPRATROPIUM 0.5 MG/2.5 ML NEBU INHALATION SCH (07:31)
[2020-10-08] MEDS: APIXABAN 5 MG TAB PO SCH (07:31)
[2020-10-08 09:10] LABS: African American GFR (CKD) >90 (>60 ml/min/1.73 sqM); Anion Gap 6 mmol/L; Blood Urea Nitrogen 10 mg/dL (9-20); Calcium 9.7 mg/dL (8.4-10.2); Carbon Dioxide 25 mmol/L (22-30); Chloride 100 mmol/L (98-107); Glucose 90 mg/dL (74-99); Non-African American GFR(CKD) >90 (>60 ml/min/1.73 sqM); Sodium 131 mmol/L (137-145)
[2020-10-08] MEDS ORDERED: CEFEPIME 2 GM in SODIUM CHLORIDE 0.9% 100 ML IVPB SCH (21:00)
--- NOTE | 2020-10-09 00:30 | P.DS ---
Providers Date of admission: 10/03/20 15:39 Attending physician: Rigo Soliman MD Consults: 10/03/20 14:44 Consult Physician Urgent Consulting Provider: Troy Ceja Reason/Comments: Neck mass Do you want consulting provider notified?: Yes 10/03/20 14:45 Consult Physician Urgent Consulting Provider: Aryan Mckeon Consult Reason/Comments: Neck mass Do you want consulting provider notified?: Yes 10/03/20 19:32 Consult Physician Urgent Consulting Provider: Aryan Mckeon Consult Reason/Comments: IJ vein thrombosis, with hilar and mediastinal LAP Do you want consulting provider notified?: Yes 10/07/20 09:18 Consult Physician Urgent Consulting Provider: Amado Alston Consult Reason/Comments: elevated wbc, possible sepsis Do you want consulting provider notified?: Yes Primary care physician: Jozef [facility] Hospital Course: Please note the patient was not discharged, but the left signing AMA Diagnoses: acute right internal jugular venous thrombosis Hilar and mediastinal lymphadenopathy, status post right neck lymph node biopsy. Biopsy showing metastatic moderately to poorly differentiated squamous cell cancer Possible pneumonia Hyponatremia, hypervolemic, sodium improved to 131 today and patient was asymptomatic regarding this History of tongue cancer in 2017 status post chemoradiotherapy Nicotine dependence Hospital course: This is a pleasant 70 years old male with past medical history of tongue cancer in 2017 is status post chemo and radiotherapy. He is currently follow-up with Dr. casas, last see him about one month ago and everything looked fine regarding this. Also history of COPD. Presents because as he describes as right shoulder pain for the last 60 days without history of trauma. States that pain was 10/10 on admission, CT of the chest showing hilar and mediastinal adenopathy. thrombosed right internal jugular vein. Small to moderate right-sided pleural effusion with underlying compressive atelectasis or infiltrate over the right lower lobe CT of the brain: No acute process Patient has been evaluated by drapery rod assembler and he was placed on Eliquis 10 mg twice a day followed by 5 mg twice a day thereafter His lymph node biopsy came back positive for squamous cell cancer as above. Hematology/oncology team recommended PET scan as an outpatient and to follow up with Dr. Mckeon on 10/19. After patient gave me consent to talk to his son at bedside, I told him about his lymph node biopsy results of squamous cell cancer in the follow-up arrangements he verbalized understanding and he asked me if you questions like to do no of this is localized or spread, I told him that's why he need PET scan. Also patient yesterday chest x-ray was suspicious for pneumonia with 4calcitonin trending up to 0.22, he was placed on Augmentin plan was for him to repeat chest x-ray tomorrow However patient refused to stay in the hospital stating that he wanted to leave AMA. Risks of leaving AMA are explained to him and his son at bedside upon his request, these risks including but not limited to worsening sepsis, worsening of thrombosis, bleeding, and/or and he verbalized understanding but he refused to stay, patient states that he'll think it and will make him stay. Based upon my evaluation patient has capacity to make medical decision Upon discharge he wants to get upright him prescription for Augmentin, which is provided for short course of oral antibiotics however I medically for him that this antibiotics is not guarantee will clear him from pneumonia, also it but have side effects he verbalized understanding and acceptance to take it Also the nurse called her had pharmacy and confirmed he has prescription for Eliquis After that patient left with his son, Pati bedside nurse told me was patient was also the hospital he wanted to smoke a cigarette Physical exam Gen: patient is a AAOx3, no distress CVS: S1-S2, RRR, no murmur Lungs: B/L CTA, no wheezing. Mildly tachypneic 20 breaths per minute Abdomen: soft, no distention, no tenderness, positive bowel sounds Extremity: no leg edema or induration Time spent more than 35 minutes Patient Condition at Discharge: Fair Plan - Discharge Summary Discharge Rx Participant: No New Discharge Prescriptions: New RX: Amoxic-Pot Clav 875-125Mg [Augmentin 875-125] 1 each PO Q12HR 5 Days #10 tab Apixaban [Eliquis Starter Pack (for VTE)] 5 mg PO DIRECTED 30 Days #1 pack No Action Ipratropium [place] [Atrovent Hfa] 1 puff INHALATION RT-BID Albuterol Sulfate [Ventolin HFA] 2 puff INHALATION RT-QID PRN PRN Reason: Shortness Of Breath Discharge Medication List Ipratropium [place] [Atrovent Hfa] 1 puff INHALATION RT-BID 07/30/16 [History] Albuterol Sulfate [Ventolin HFA] 2 puff INHALATION RT-QID PRN 10/03/20 [History] Apixaban [Eliquis Starter Pack (for VTE)] 5 mg PO DIRECTED 30 Days #1 pack 10/06/20 [Rx] RX: Amoxic-Pot Clav 875-125Mg [Augmentin 875-125] 1 each PO Q12HR 5 Days #10 tab 10/08/20 [Rx] Follow up Appointment(s)/Referral(s): Aryan Mckeon MD [STAFF PHYSICIAN] - 10/19/20 4:30 pm Jozef Cross DO [Primary Care Provider] - 1-2 days Activity/Diet/Wound Care/Special Instructions: Restaging PET scan scheduled for 10/11/20 at [facility] with arrival time of 7:15 AM If you decide you would like to receive in home health care services, please call Dr. Dominique's office and they will set it up for you. Discharge Disposition: Left Against Medical Advice
== END 2020-10-08 12:13 | disposition left against medical advice (07) | DRG 264 ==
LOC: EC 09:47 → 5NMEDONC 15:39
PROVIDERS: ADMIT Internal Medicine; ATTEND Internal Medicine
PROC: 07B13ZX Excision of Right Neck Lymphatic, Percutaneous Approach, Diagnostic (ICD-10-PCS; principal; 2020-10-05)
DX: I82.C11 Acute embolism and thrombosis of right internal jugular vein (principal); J18.9 Pneumonia, unspecified organism; C77.1 Secondary and unspecified malignant neoplasm of intrathoracic lymph nodes; J44.0 Chronic obstructive pulmonary disease with (acute) lower respiratory infection; J90 Pleural effusion, not elsewhere classified; J98.11 Atelectasis; E87.1 Hypo-osmolality and hyponatremia; C78.1 Secondary malignant neoplasm of mediastinum; E87.70 Fluid overload, unspecified; G31.89 Other specified degenerative diseases of nervous system; D64.9 Anemia, unspecified; Z87.891 Personal history of nicotine dependence; Z79.01 Long term (current) use of anticoagulants; Z85.810 Personal history of malignant neoplasm of tongue; Z92.21 Personal history of antineoplastic chemotherapy; Z92.3 Personal history of irradiation; Z90.49 Acquired absence of other specified parts of digestive tract; Z87.81 Personal history of (healed) traumatic fracture; Z87.19 Personal history of other diseases of the digestive system
CPT/HCPCS: 36415; 38505; 70450; 70491; 71045; 71260; 76942; 80048; 80051; 80053; 80076; 81003; 82140; 83605; 83735; 84145; 84484; 85025; 85610; 85730; 86850; 86900; 86901; 87040; 88305; 88341; 88342; 93005; 94640; 96361; 96374; 96375; 99285

== ENCOUNTER 2020-10-25 09:12 | Inpatient (IN) | payer MEDICARE ==
[2020-10-25] MEDS ORDERED: SODIUM CHLORIDE 0.9% 1,000 ML IV STA ×2 (09:53→12:52)
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
[2020-10-25 10:12] LABS: Anisocytosis Slight; Basophils % (A) 0 %; Eosinophils % (A) 0 %; HCT 49.9 % (39.0-53.0); Hypochromasia Slight; Lymphocytes # (A) 0.4 k/uL (1.0-4.8); Lymphocytes % (A) 2 %; MCH 26.9 pg (25.0-35.0); MCHC 31.5 g/dL (31.0-37.0); MCV 85.5 fL (80.0-100.0); Mean Platelet Volume 7.7; Monocytes # (A) 0.6 k/uL (0-1.0); Monocytes % (A) 3 %; Neutrophils # (A) 23.8 k/uL (1.3-7.7); Neutrophils % (A) 95 %; Platelet Count 380 k/uL (150-450); RBC 5.84 m/uL (4.30-5.90); RDW 16.4 % (11.5-15.5); WBC 24.9 k/uL (3.8-10.6)
[2020-10-25 10:23] LABS: HGB 15.7 gm/dL (13.0-17.5)
[2020-10-25 10:27] LABS: Albumin 3.4 g/dL (3.5-5.0); INR 1.3 (<1.2); Partial Thromboplastin Time 22.6 sec (22.0-30.0); Potassium 3.3 mmol/L (3.5-5.1); Prothrombin Time 13.5 sec (9.0-12.0); Total Bilirubin 1.5 mg/dL (0.2-1.3); Total Protein 6.6 g/dL (6.3-8.2)
[2020-10-25] MEDS ORDERED: PIPERACILLIN-TAZOBACTAM 3.375 GM in SODIUM CHLORIDE 0.9% 100 ML IVPB STA (10:50)
[2020-10-25] MEDS ORDERED: VANCOMYCIN IV PER PHARMACY 1 EACH MISC MISCELLANE PRN (10:50)
--- NOTE | 2020-10-25 10:55 | CT ---
EXAMINATION TYPE: CT brain wo con DATE OF EXAM: 10/25/2020 HISTORY: Altered mental status, weakness CT DLP: 1086.4 mGycm. Automated Exposure Control for Dose Reduction was Utilized. TECHNIQUE: CT scan of the head is performed without contrast. COMPARISON: CT brain October 07, 2020. FINDINGS: There is no acute intracranial hemorrhage or midline shift identified. There is mild to m oderate diffuse ventricular and sulcal prominence consistent with diffuse age-related cerebral atroph y. There is moderate low-attenuation in the periventricular white matter consistent with chronic sma ll vessel ischemic change. More prominent opacification with some dependent fluid in the right maxill izabel sinus. Additional patchy dependent fluid right posterior ethmoid and sphenoid sinus. Small mucous retention cysts and/or polyps in the posterior frontal sinuses axial image 16 redemonstrated. Lobes are intact bilaterally. IMPRESSION: No acute intracranial hemorrhage or midline shift. There is mild to moderate diffuse ag e-related cerebral atrophy and moderate chronic small vessel ischemic change redemonstrated. Acute pa ranasal sinus disease now noted on background chronic sinusitis.
[2020-10-25] MEDS ORDERED: VANCOMYCIN 1,000 MG in SODIUM CHLORIDE 0.9% 250 ML IVPB STA (11:03)
--- NOTE | 2020-10-25 11:59 | XR ---
EXAMINATION TYPE: XR chest 1V portable DATE OF EXAM: 10/25/2020 COMPARISON: Chest x-ray October 07, 2020. CT chest October 03, 2020 HISTORY: Weakness and shortness of breath TECHNIQUE: Single AP portable frontal upright view of the chest is obtained. FINDINGS: There is emphysematous and pulmonary fibrotic change including right-sided volume loss wit h persistent small right pleural effusion all redemonstrated. New right basilar opacity noted. The ca rdiac silhouette size is stable and within normal limits. Underlying scoliotic curvature is redemonst rated. Cholecystectomy clips are now present. IMPRESSION: Chronic emphysematous and pulmonary fibrotic changes with stable small right pleural eff usion. New Right basilar acute infiltrate and/or atelectasis noted.
[2020-10-25 12:51] LABS: Appearance,Urine Cloudy (Clear); Bilirubin,Urine Negative (Negative); Blood,Urine Negative (Negative); Color,Urine Yellow; Glucose,Urine (UA) Negative (Negative); Hyaline Casts,Urine 1 /lpf (0-2); Ketones,Urine Negative (Negative); Leukocyte Esterase,Urine Negative (Negative); Mucus,Urine Rare /hpf; Nitrite,Urine Negative (Negative); Protein,Urine Trace (Negative); RBC,Urine 4 /hpf (0-5); Specific Gravity,Urine 1.018 (1.001-1.035); Squamous Epithelial Cell,Urine <1 /hpf (0-4); WBC,Urine 2 /hpf (0-5)
[2020-10-25] MEDS ORDERED: NALOXONE 0.4 MG/ML 1 ML VIAL IV PRN (13:14)
[2020-10-25] MEDS ORDERED: ACETAMINOPHEN TAB 325 MG TAB PO PRN (13:14)
[2020-10-25] MEDS ORDERED: SODIUM CHLORIDE 0.9% 250 ML with PAMIDRONATE 60 MG IV ONE ×2 (15:00)
[2020-10-25] MEDS ORDERED: SODIUM CHLORIDE 0.9% 1,000 ML IV ONE (15:45)
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
[2020-10-25] MEDS ORDERED: CEFEPIME 2 GM in SODIUM CHLORIDE 0.9% 100 ML IVPB SCH (16:00)
[2020-10-25] MEDS ORDERED: SODIUM CHLORIDE 0.9% 1,000 ML IV SCH (16:00)
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
[2020-10-25] MEDS: CEFEPIME 1 GM in SODIUM CHLORIDE 0.9% 50 ML IVPB SCH (21:03)
[2020-10-25 22:24] LABS: ABG Base Excess 1.3 mmol/L; ABG HCO3 25 mmol/L (21-25); ABG Oxygen Saturation 86.6 % (94-97); ABG PCO2 33 mmHg (35-45); ABG PH 7.48 (7.35-7.45); ABG TCO2 26 mmol/L (19-24); Allen Test Performed? Yes
--- NOTE | 2020-10-25 22:40 | XR ---
EXAMINATION TYPE: XR chest 1V portable DATE OF EXAM: 10/25/2020 COMPARISON: 10/25/2020 HISTORY: Respiratory distress TECHNIQUE: FINDINGS: There is some airspace consolidation right lower lobe with right pleural effusion. Left elsy g is fairly clear. Heart and mediastinum are deviated slightly to the right side. There are chest adan ds. There is no heart failure. IMPRESSION: There is increasing right pleural effusion and right lower lobe pneumonia and atelectasis compared to the exam this morning.
[2020-10-25 23:09] LABS: Glucose,Whole Blood 88 mg/dL (75-99)
--- NOTE | 2020-10-25 23:25 | P.EN ---
A team note Activated at 10:35 pm. Arrived on the scene shortly after. Reviewed the chart and discussed the case with RN. The patient is an ill frail gentleman who was admitted for severe sepsis secondary to pneumonia. He was recently diagnosed with metastatic head and neck cancer with biopsy positive mediastinal lymphadenopathy. He also has a history of right internal jugular vein thrombosis, w/ non-compliance. The patient was noted to be hypoxic by the RN with SpO2 78% on room air. Remaining vitals upon arrival were BP 92/74, pulse 120, 97.0, and SpO2 80% on room air. General: Ill-appearing frail male, in some respiratory distress, appears older than stated age HEENT: NC/AT, anicteric sclerae, moist conjunctiva, no lid-lag, PERRLA Cardiovascular: S1/S2 wnl, tachycardic, no murmurs, rubs, or gallops Lungs: Poor air entry bilaterally w/ right asilar rhonchi appreciated, some accessory muscle use noted Abdominal: Soft, non-tender, non-distended, no guarding, rebound, or rigidity Skin: Warm, dry Extremities: No edema or contractures Psychiatric: Slow to answer, oriented only to person and place Neuro: CN II-XII grossly intact, moving all extremities, no gross focal motor deficits noted Assessment/plan Hypoxia and hypotension, may be secondary to worsening sepsis -Continue with IV antibiotics cefepime and vancomycin -Repeat chest x-ray showing worsening right pleural effusion -Status post 500 mL IV bolus -The patient to be transferred to medical ICU for further monitoring -Discussed the case in detail with the patient's son including worsening condition and relatively poor prognosis in setting of metastatic malignancy. The son noted that he wishes for his father to be a Full-Code for now as he believes his father "is a fighter and wouldn't want to give up" -The patient placed on AirVo for further oxygen support -Chest CTA ordered by hand sprayer to r/o PE -Continue to monitor lactate levels
[2020-10-25] MEDS ORDERED: propofoL 100 ML IV ONE (23:27)
[2020-10-25 23:48] LABS: ABG PO2 55 mmHg (83-108)
[2020-10-25 23:57] LABS: ABG Base Excess 0.1 mmol/L; ABG HCO3 25 mmol/L (21-25); ABG Oxygen Saturation 82.1 % (94-97); ABG PCO2 38 mmHg (35-45); ABG PH 7.42 (7.35-7.45); ABG TCO2 26 mmol/L (19-24); Allen Test Performed? Yes
--- NOTE | 2020-10-26 00:05 | XR ---
EXAMINATION TYPE: XR chest 1V portable DATE OF EXAM: 10/25/2020 COMPARISON: Today HISTORY: Tube placement TECHNIQUE: FINDINGS: There is endotracheal tube 2 cm from the marshal. There is right pleural effusion and right lower lobe airspace consolidation unchanged compared to exam one hour ago. The left lung is clear. Th ere is no heart failure. IMPRESSION: Endotracheal tube as above. No heart failure. Right lower lobe pneumonia and pleural flui d.
[2020-10-26 00:07] LABS: ABG PO2 52 mmHg (83-108)
[2020-10-26] MEDS: SODIUM CHLORIDE 0.9% 1,000 ML IV SCH ×4 (00:19→12:20)
[2020-10-26] MEDS: APIXABAN 5 MG TAB PO SCH ×2 (00:20→11:10)
[2020-10-26] MEDS: FAMOTIDINE 20 MG/2 ML VIAL IV SCH ×2 (00:20→11:09)
[2020-10-26] MEDS ORDERED: LACTATED RINGERS 1,000 ML IV ONE (00:43)
[2020-10-26 01:06] VITALS: TEMP 98
[2020-10-26] MEDS ORDERED: NOREPINEPHRIN 4 MG-0.9% NS PMX 4 MG/250 ML ML IV ONE (02:26)
[2020-10-26] MEDS: NOREPINEPHRINE 4 MG in SODIUM CHLORIDE 0.9% 250 ML IV SCH ×3 (02:54→09:10)
[2020-10-26 04:27] LABS: Appearance,Urine Cloudy (Clear); Bacteria,Urine Rare /hpf; Bilirubin,Urine Negative (Negative); Blood,Urine Trace (Negative); Color,Urine Yellow; Glucose,Urine (UA) Negative (Negative); Hyaline Casts,Urine 57 /lpf (0-2); Ketones,Urine Negative (Negative); Leukocyte Esterase,Urine Trace (Negative); Mucus,Urine Rare /hpf; Nitrite,Urine Negative (Negative); Protein,Urine Trace (Negative); RBC,Urine 13 /hpf (0-5); Specific Gravity,Urine 1.019 (1.001-1.035); Squamous Epithelial Cell,Urine 1 /hpf (0-4); Uric Acid Crystals,Urine Occasional /hpf; WBC,Urine 12 /hpf (0-5)
[2020-10-26 05:00] LABS: ABG Base Excess -2.8 mmol/L; ABG HCO3 24 mmol/L (21-25); ABG Oxygen Saturation 95.8 % (94-97); ABG PCO2 49 mmHg (35-45); ABG PH 7.29 (7.35-7.45); ABG PO2 99 mmHg (83-108); ABG TCO2 25 mmol/L (19-24); Allen Test Performed? Yes
[2020-10-26 05:30] LABS: Anisocytosis Slight; Basophils # (A) 0.1 k/uL (0-0.2); Basophils % (A) 0 %; Eosinophils # (A) 0.1 k/uL (0-0.7); Eosinophils % (A) 0 %; HGB 14.4 gm/dL (13.0-17.5); Hypochromasia Marked; Lymphocytes # (A) 0.3 k/uL (1.0-4.8); Lymphocytes % (A) 1 %; MCH 26.7 pg (25.0-35.0); MCHC 30.5 g/dL (31.0-37.0); MCV 87.5 fL (80.0-100.0); Mean Platelet Volume 8.5; Monocytes # (A) 0.7 k/uL (0-1.0); Monocytes % (A) 2 %; Neutrophils # (A) 31.9 k/uL (1.3-7.7); Neutrophils % (A) 96 %; Platelet Count 268 k/uL (150-450); RBC 5.37 m/uL (4.30-5.90); RDW 16.3 % (11.5-15.5); WBC 33.3 k/uL (3.8-10.6)
[2020-10-26 05:37] LABS: Albumin 2.5 g/dL (3.5-5.0); Bilirubin, Delta 0.6 mg/dL (0.0-0.2); Bilirubin,Unconjugated 0.4 mg/dL (0.0-1.1); Magnesium 2.6 mg/dL (1.6-2.3); Total Protein 5.4 g/dL (6.3-8.2)
[2020-10-26 06:06] LABS: Glucose,Whole Blood 154 mg/dL (75-99)
[2020-10-26 06:09] LABS: Calcium 13.6 mg/dL (8.4-10.2); Potassium 3.8 mmol/L (3.5-5.1)
[2020-10-26] MEDS: CEFEPIME 1 GM in SODIUM CHLORIDE 0.9% 50 ML IVPB SCH (06:13)
--- NOTE | 2020-10-26 06:54 | XR ---
EXAMINATION TYPE: XR chest 1V portable DATE OF EXAM: 10/26/2020 COMPARISON: 10/25/2020 HISTORY: SOB, Follow Up FINDINGS: Indwelling tubes and catheters are unchanged. Right lower lobe infiltrate and pleural effusion persists although may be slightly improved. Persiste nt right apical patchy density noted as well. Stable appearance of the cardio-mediastinal structures at this time. Pleural effusion unchanged. IMPRESSION: 1. Right lower lobe infiltrate and pleural effusion persists although may be slightly improved. Pers istent right apical patchy density noted as well.Clinical correlation and follow up until resolution is recommended.
[2020-10-26 07:13] LABS: Poikilocytosis (M) Present
[2020-10-26] MEDS ORDERED: VANCOMYCIN 1,000 MG in SODIUM CHLORIDE 0.9% 250 ML IVPB ONE (08:00)
[2020-10-26] MEDS ORDERED: CHLORHEXIDINE GLUCONATE 15 ML CUP MUCOUS MEM SCH (09:00)
[2020-10-26] MEDS ORDERED: NOREPINEPHRINE 32 MG in SODIUM CHLORIDE 0.9% 218 ML IV SCH (09:30)
[2020-10-26] MEDS ORDERED: SODIUM CHLORIDE 0.9% 250 ML with PAMIDRONATE 60 MG IV ONE ×2 (09:47)
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
--- NOTE | 2020-10-26 09:51 | P.PCN ---
Date of Procedure: 10/26/20 Preoperative Diagnosis: Septic shock Postoperative Diagnosis: Septic shock Procedure(s) Performed: insertion of an arterial line, insertion of a central line Operative Findings: Procedure(s) Performed: Insertion of a central line Anesthesia: local Surgeon: Unique Rubalcava Estimated Blood Loss (ml): 0 Pathology: none sent Condition: critical Disposition: ICU Operative Findings: Indication: Hemodynamic monitoring/Intravenous access. A time-out was completed verifying correct patient, procedure, site, positioning, and implant(s) or special equipment if applicable. The patient was placed in a dependent position appropriate for central line placement based on the vein to be cannulated. The patients left neck was prepped and draped in sterile fashion. 1% Lidocaine was used to anesthetize the surrounding skin area. A triple lumen 9F Cordis catheter was introduced into the Left IJ vein using Seldinger technique. The catheter was threaded smoothly over the guide wire and appropriate blood return was obtained. Each lumen of the catheter was evacuated of air and flushed with sterile saline. The catheter was then sutured in place to the skin and a sterile dressing applied. Perfusion to the extremity distal to the point of catheter insertion was checked and found to be adequate. The patient tolerated the procedure well and there were no complications. Arterial line insertion Indication: Hemodynamic monitoring. A time-out was completed verifying correct patient, procedure, site, positioning, and implant(s) or special equipment if applicable. The patients right groin was prepped and draped in sterile fashion. 1% Lidocaine was used to anesthetize the area. An 18G Arrow arterial line was introduced into the femoral artery. The catheter was threaded over the guide wire and the needle was removed with appropriate pulsatile blood return. Blood loss was minimal. The catheter was then sutured in place to the skin and a sterile dressing applied. Perfusion to the extremity distal to the point of catheter insertion was checked and found to be adequate. The patient tolerated the procedure well and there were no complications.
[2020-10-26] MEDS ORDERED: SODIUM CHLORIDE 0.9% 150 ML with VASOPRESSIN 60 UNIT IV SCH ×2 (10:00)
--- NOTE | 2020-10-26 10:31 | XR ---
EXAMINATION TYPE: XR chest 1V confirm line [facility] DATE OF EXAM: 10/26/2020 CLINICAL HISTORY: Central line and OG tube placement TECHNIQUE: Single AP portable semiupright view of the chest is obtained. COMPARISON: Chest x-ray from earlier today and older studies FINDINGS: New orogastric tube projects below diaphragm. Slight coiling is partially imaged. New left internal jugular central venous catheter terminates the cavoatrial junction. Stable endotracheal tube.There is emphysematous and pulmonary fibrotic change with small to tiny bila teral pleural effusions redemonstrated. Persistent right basilar opacity noted. The cardiac silhouett e size is stable and within normal limits with atherosclerotic change aortic knob redemonstrated. Und erlying scoliotic curvature is redemonstrated. Overlying EKG leads again seen. Old fracture deformity right clavicle seen better on current study. IMPRESSION: 1. New orogastric tube projects below the diaphragm. 2. No pneumothorax after left internal jugular central venous catheter placement. 3. Chronic emphysematous and pulmonary fibrotic changes with persistent tiny bilateral pleural effusi ons and patchy right basilar acute atelectasis and/or infiltrate redemonstrated.
--- NOTE | 2020-10-26 11:36 | ECHOF ---
Referral Reason:Rule out heart disease MEASUREMENTS -------- HEIGHT: 177.8 cm WEIGHT: 44.5 kg BP: 85/59 RVIDd: 2.2 cm (< 3.3) IVSd: 1.0 cm (0.6 - 1.1) LVIDd: 2.1 cm (3.9 - 5.3) LVPWd: 1.0 cm (0.6 - 1.1) IVSs: 1.2 cm LVIDs: 1.5 cm LVPWs: 1.2 cm Ao Diam: 3.0 cm (2.0 - 3.7) AV Cusp: 1.8 cm (1.5 - 2.6) MV EXCURSION: 20.613 mm (> 18.000) RAP: 5.00 mmHg RVSP: 31.72 mmHg FINDINGS -------- Resting tachycardia (HR>100bpm). Pt. on a vent. Parasternal and apical views unable to be obtained. Entire study performed from subcostal window. The left ventricular size is normal. Left ventricular wall thickness is normal. Overall left vent ricular systolic function is normal with, an EF between 55 - 60 %. The right ventricle is normal in size. The left atrial size is normal. The right atrial size is normal. Interatrial and interventricular septum intact. There is no evidence of aortic regurgitation. There is no evidence of aortic stenosis. The mitral valve was not well visualized. Mild tricuspid regurgitation present. There is borderline pulmonary artery hypertension. The righ t ventricular systolic pressure, as measured by Doppler, is 31.72mmHg. There is no pulmonic regurgitation present. The aortic root size is normal. IVC Not well visulized. There is a moderate pericardial effusion is located near the right ventricle. CONCLUSIONS -------- 1. The left ventricular size is normal. 2. Left ventricular wall thickness is normal. 3. Overall left ventricular systolic function is normal with, an EF between 55 - 60 %. 4. Mild tricuspid regurgitation present. 5. There is borderline pulmonary artery hypertension. 6. The right ventricular systolic pressure, as measured by Doppler, is 31.72mmHg. 7. There is a moderate pericardial effusion is located near the right ventricle. [employer] OPERATOR: Meera Trevino RDCS
[2020-10-26 11:58] LABS: Glucose,Whole Blood 96 mg/dL (75-99)
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
[2020-10-26 12:07] VITALS: BMI 14.2
--- NOTE | 2020-10-26 12:42 | CDI ---
Documentation Clarification Form Date: 10/26/2020 12:37:07 PM From: Cecelia Justice RN, CCDS Admit Date: 10/25/2020 01:14:00 PM Patient Name: Benitez Solis Visit Number: [id number] ATTENTION: The Clinical Documentation Specialists (CDI) and [facility] Coding Staff appreciate your assistance in clarifying documentation. Please respond to the clarification below the line at the bottom and electronically sign. The CDI & [facility] Coding staff will review the response and follow-up if needed. Please note: Queries are made part of the Legal Health Record. If you have any questions, please contact the author of this message via ITS. Dr. Sierra E Sheet Pulmonary documentation on 10/25 indicates this patient is malnourished with a low BMI and failure to thrive. Based on this information and the findings below, is there an additional diagnosis that is clinically appropriate for this patient? 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 The patient is extremely cachectic, emaciated and seems to be quite malnourished. Debility with cachexia and weight loss with obvious signs of malnourishment. Extremities are showing muscle atrophy RD Consult Assessment: "Patient appears underweight, 60% of IBW, NPO, Maintained on mechanical ventilator with sedation Current BMI: 14.2 Insufficient energy intake: patient reported anorexia an Weight Loss: weight loss and failure to thrive documented Loss of subcutaneous fat: Loss of muscle mass: Atrophy of extremities documented Fluid accumulation: no edema documented Decreased hand specialty therapist strength: generalized weakness and debility Treatment: Dietary Consult: completed 10/26 Tube feedings recs made: Vital AF 1.2 with a goal rate of 50 cc/hr. with 30ml free water flush every 4 hrs. Lab monitoring: Am Daily Is there an additional diagnosis that is clinically appropriate for this patient? [ ] Moderate Protein-Calorie Malnutrition [ ] Severe Protein-Calorie Malnutrition [ ] Other condition, please specify [ ] Unable to Determine (Template Last Revised: May 2020) Severe Protein-Calorie Malnutrition MTDD
--- NOTE | 2020-10-26 12:51 | CDI ---
Documentation Clarification Form Date: 10/26/2020 12:42:00 PM From: Cecelia Justice RN, CCDS Admit Date: 10/25/2020 01:14:00 PM Patient Name: Benitez Solis Visit Number: [id number] ATTENTION: The Clinical Documentation Specialists (CDI) and [facility] Coding Staff appreciate your assistance in clarifying documentation. Please respond to the clarification below the line at the bottom and electronically sign. The CDI & [facility] Coding staff will review the response and follow-up if needed. Please note: Queries are made part of the Legal Health Record. If you have any questions, please contact the author of this message via ITS. Dr. Rigo Soliman Atrial Fibrillation is documented 10/25 & 10/26 Pulmonary Consult and Progress note. Additional clarification regarding the type of atrial fibrillation is requested. History/Risk Factors: COPD, Ca of tongue with chemo and radiation with ca of lymph nodes in right neck, Right IJ Thrombosis. Current Sepsis with septic shock due to pneumonia, hypercalcemia, lactic acidosis, acute hypoxic respiratory failure Clinical Indicators: 10/25& 10/26 Pulmonary Consult & Progress Note: "The patient is coming in and out of atrial fibrillation with a right-sided pleural effusion along with right lower lobe pulmonary infiltrate." 10/25 EKG: Sinus Tach with PVC's Treatment: Eliquis 5 mg Po BID 10/25 2L 0.9% NS IVF bolus 10/26 2L 0.9% IVF bolus followed by 150 cc/hr. 10/26 1L LR IVF bolus Levophed Gtt- titrate for B/P Please clarify the type of atrial fibrillation, if known: [ ] Chronic [ ] Permanent [ ] Paroxysmal [ ] Persistent [ ] Other, please specify [ ] Unable to determine (Template Last Revised: July 2020) Unable to determine MTDD
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
[2020-10-26] MEDS ORDERED: MORPHINE SULFATE 2 MG/ML SYRINGE IV PRN (15:06)
[2020-10-26 17:02] VITALS: BP 70/50; PULSE 102; RESP 20
[2020-10-26] MEDS ORDERED: CEFEPIME 2 GM in SODIUM CHLORIDE 0.9% 100 ML IVPB SCH (18:00)
--- NOTE | 2020-10-26 22:47 | P.DS ---
Providers Date of admission: 10/25/20 13:14 Attending physician: Rigo Soliman MD Consults: 10/25/20 13:14 Consult Physician Routine Consulting Provider: Aryan Mckeon Consult Reason/Comments: cancer, hypercalcemia Do you want consulting provider notified?: Yes Consult Physician Routine Consulting Provider: Amado Alston Consult Reason/Comments: sirs/sepsis Do you want consulting provider notified?: Yes 10/25/20 15:35 Consult Physician Urgent Consulting Provider: Unique Rubalcava Consult Reason/Comments: severe sepsis with pneumonia Do you want consulting provider notified?: Yes Primary care physician: [facility] Course: Diagnoses: End of life support, comfort care severe Sepsis with leukocytosis, tachycardia and hyperthermia on admission, worsened into septic shock Acute hypoxic respiratory failure, needing intubation and placed on mechanical ventilation Acute right basilar pneumonia, could be secondary to gram-negative bacilli and/or gram-positive cocci Acute kidney injury hypotension with lactic acidosis Hypercalcemia Recent diagnosis of Hilar and mediastinal lymphadenopathy, status post right neck lymph node biopsy. 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 At that time he left AMA, he was also diagnosed with right internal jugular vein thrombosis and started on a blood thinner. Possible pneumonia, mild hyponatremia and history o f tongue cancer in 2017 Stem presents with worsening right-sided pneumonia severe lethargy and confusion. Patient was that of her severe sepsis and he was started on broad- spectrum antibiotics with cefepime and IV vancomycin and aggressive IV hydration. Evaluated by pulmonary/critical care team and oncology and cardiology team. Patient condition continued to worsen and last night he developed septic shock and he will have to be placed on pressors with levophed and mechanical ventilation and intubation. This morning he was not making urine well he has Hart catheter. He was not doing well and he needed a second procedure later on with vasopressin. Eventually the patient's son who is next of kin as he is comfortable to me yesterday and who was with him during the last hospital stay almost every day, he came today and discussed with the bedside nurse that he wanted his father to be comfort care which looks appropriate given his very poor prognosis both short-term and long-term. Patient was made no code prior to expiration Eventually patient today on 17:20, please refer to restart for more details Physical exam a prior to expiration -Gen: patient is sedated and intubated. Patient is pale and cachectic CVS: S1-S2, RRR, no murmur -Lungs: Decreased air entry and crepitation more on the right side -Abdomen: soft, no distention, no tenderness, positive bowel sounds. Hart catheter is in place with minimal urine output Extremity: no leg edema or induration Time spent more than 35 minutes Patient Condition at Discharge: Fair Plan - Discharge Summary Discharge Rx Participant: No New Discharge Prescriptions: No Action Ipratropium Leon [Atrovent Hfa] 1 puff INHALATION RT-BID Albuterol Sulfate [Ventolin HFA] 2 puff INHALATION RT-QID PRN PRN Reason: Shortness Of Breath Apixaban [Eliquis Starter Pack (for VTE)] See Taper PO BID Discharge Medication List Ipratropium Leon [Atrovent Hfa] 1 puff INHALATION RT-BID 07/30/16 [History] Albuterol Sulfate [Ventolin HFA] 2 puff INHALATION RT-QID PRN 10/03/20 [History] Apixaban [Eliquis Starter Pack (for VTE)] See Taper PO BID 10/25/20 [History] Follow up Appointment(s)/Referral(s): Jozef Cross DO [Primary Care Provider] - 1-2 days Discharge Disposition: - Preliminary Cause of Preliminary Cause of : septic shock
== END 2020-10-26 18:50 | disposition expired | DRG 871 ==
LOC: EC 09:12 → 3SCARD 13:14 → 2SICU 23:17
PROVIDERS: ADMIT Internal Medicine; ATTEND Internal Medicine
PROC: 3E043XZ Introduction of Vasopressor into Central Vein, Percutaneous Approach (ICD-10-PCS; 2020-10-25)
PROC: 04HY32Z Insertion of Monitoring Device into Lower Artery, Percutaneous Approach (ICD-10-PCS; principal; 2020-10-26)
PROC: 4A133B1 Monitoring of Arterial Pressure, Peripheral, Percutaneous Approach (ICD-10-PCS; 2020-10-26)
PROC: 4A133J1 Monitoring of Arterial Pulse, Peripheral, Percutaneous Approach (ICD-10-PCS; 2020-10-26)
PROC: 05HN33Z Insertion of Infusion Device into Left Internal Jugular Vein, Percutaneous Approach (ICD-10-PCS; 2020-10-26)
PROC: 5A1935Z Respiratory Ventilation, Less than 24 Consecutive Hours (ICD-10-PCS; 2020-10-26)
PROC: 0BH17EZ Insertion of Endotracheal Airway into Trachea, Via Natural or Artificial Opening (ICD-10-PCS; 2020-10-26)
DX: A41.50 Gram-negative sepsis, unspecified (principal); J15.6 Pneumonia due to other Gram-negative bacteria; J96.01 Acute respiratory failure with hypoxia; R65.21 Severe sepsis with septic shock; E43 Unspecified severe protein-calorie malnutrition; E87.2 Acidosis; J90 Pleural effusion, not elsewhere classified; N17.9 Acute kidney failure, unspecified; Z68.1 Body mass index [BMI] 19.9 or less, adult; C79.51 Secondary malignant neoplasm of bone; J44.0 Chronic obstructive pulmonary disease with (acute) lower respiratory infection; I31.3 Pericardial effusion (noninflammatory); C77.8 Secondary and unspecified malignant neoplasm of lymph nodes of multiple regions; C79.71 Secondary malignant neoplasm of right adrenal gland; R64 Cachexia; Z66 Do not resuscitate; I48.91 Unspecified atrial fibrillation; Z51.5 Encounter for palliative care; E83.52 Hypercalcemia; R62.7 Adult failure to thrive; R77.8 Other specified abnormalities of plasma proteins; Z20.822 Contact with and (suspected) exposure to COVID-19; F17.200 Nicotine dependence, unspecified, uncomplicated; I27.21 Secondary pulmonary arterial hypertension; Z87.01 Personal history of pneumonia (recurrent); Z85.810 Personal history of malignant neoplasm of tongue; Z86.718 Personal history of other venous thrombosis and embolism; Z82.49 Family history of ischemic heart disease and other diseases of the circulatory system; Z82.5 Family history of asthma and other chronic lower respiratory diseases; Z91.19 Patient's noncompliance with other medical treatment and regimen; Z92.3 Personal history of irradiation; Z92.21 Personal history of antineoplastic chemotherapy; Z79.01 Long term (current) use of anticoagulants
CPT/HCPCS: 36415; 36600; 70450; 71045; 80048; 80053; 80076; 81001; 82533; 82805; 83605; 83735; 84145; 84484; 85025; 85610; 85730; 86850; 86900; 86901; 87040; 87070; 87086; 87205; 87635; 93005; 93306; 94002; 94003; 96361; 96365; 96366; 96375; 99291